=== PATIENT | female | born 1965 | race African-American/Black ===

== ENCOUNTER 2017-01-07 12:06 | Emergency (ER) | payer OTHER ==
[~2017-01-07] VITALS: Ht 162.6 cm; Wt 84.0 kg
[~2017-01-07 12:06] MED LIST: AMOX-424 PO; ATOR10TA PO; Acyclovir PO; DOXY100C42 PO; GABA800T PO; IBUP-1510 PO; INSASP SUBCUT; INSU3INS6 SUBCUT; LEVVL SUBCUT; TRAM50TA73 PO
[2017-01-07 14:21] LABS: CLARITY URINE CLEAR (CLEAR); COLOR URINE YELLOW (YELLOW); GLUCOSE URINE NEGATIVE (NEGATIVE); KETONES URINE NEGATIVE (NEGATIVE); LEUKOCYTE ESTERASE URINE NEGATIVE (NEGATIVE); NITRITE URINE NEGATIVE (NEGATIVE); OCCULT BLOOD URINE TRACE (NEGATIVE); PH URINE 6.5 (4.5-8.0); PROTEIN URINE 3+ (NEGATIVE); SPECIFIC GRAVITY URINE 1.014 (1.005-1.030); UROBILINOGEN URINE 0.2 E.U./dL (0.2-1.0)
[2017-01-07] MEDS ORDERED: KETOROLAC 30MG/ML VIAL IM ONE (14:45)
[2017-01-07 17:11] VITALS: BP 154/76
[2017-01-07 19:57] LABS: *AMPHETAMINES SCREEN URINE NEGATIVE (NEGATIVE); *BARBITURATES SCREEN URINE NEGATIVE (NEGATIVE); *BENZODIAZEPINES SCREEN URINE NEGATIVE (NEGATIVE); *COCAINE SCREEN URINE PRESUMTIVE POSITIVE (NEGATIVE); CANNABINOID URINE SCREEN NEGATIVE (NEGATIVE); METHADONE URINE SCREEN NEGATIVE (NEGATIVE); OPIATES URINE SCREEN NEGATIVE (NEGATIVE); PHENCYCLIDINE URINE SCREEN NEGATIVE (NEGATIVE)
== END 2017-01-07 17:12 | disposition home or self-care (01) ==
LOC: ER 12:56
DX: I50.9 Heart failure, unspecified (principal); R60.0 Localized edema; F14.10 Cocaine abuse, uncomplicated; E11.9 Type 2 diabetes mellitus without complications; Z79.4 Long term (current) use of insulin; Z98.890 Other specified postprocedural states; Z90.49 Acquired absence of other specified parts of digestive tract
CPT/HCPCS: 36415; 71010; 80048; 80305; 81001; 81025; 83880; 93970; 96372; 99285; J1885; J7030; Z7610

== ENCOUNTER 2018-04-21 18:12 | Inpatient (IN) | payer MEDICAID, OTHER ==
[~2018-04-21] VITALS: Ht 157.5 cm; Wt 77.1 kg
[~2018-04-21 18:12] MED LIST changes: -AMOX-424 PO; +ASCO500C6 MT; -Acyclovir PO; -DOXY100C42 PO; +FERR-71 MT; +GABA300C MT; -GABA800T PO; +HYDR-4133 MT; -IBUP-1510 PO; -INSASP SUBCUT; -INSU3INS6 SUBCUT; +LANTUSUD SUBCUT; -LEVVL SUBCUT; +NIFE30TA94 PO; -TRAM50TA73 PO
[2018-04-21] MEDS ORDERED: MORPHINE SULFATE 4 MG/ML CPJ (NOT FOR IM USE) IV ONE (19:00)
[2018-04-21] MEDS ORDERED: FUROSEMIDE 40MG/4ML VIAL IVP ONE (19:00)
[2018-04-21 19:17] LABS: BASOPHILS % 0.7 % (0.0-2.0); EOSINOPHILS % 6.6 % (0.0-5.0); HEMATOCRIT. 26.9 % (36.0-48.0); HEMOGLOBIN. 8.4 g/dL (12.0-16.0); LYMPHOCYTES % 16.7 % (20.0-50.0); MEAN CORPUSCULAR HEMOGLOBIN 25.8 pg (28.0-32.0); MEAN CORPUSCULAR VOLUME 82.5 fL (81.0-99.0); MEAN PLATELET VOLUME 8.9 fl (7.4-10.4); MONOCYTES % 6.4 % (2.0-8.0); NEUTROPHILS % 69.6 % (40.0-76.0); PLATELET 293 x1000/uL (130-400); RED BLOOD CELL COUNT 3.26 mill/uL (4.2-5.4); RED CELL DISTRIBUTION WIDTH 18.1 % (11.6-14.6)
[2018-04-21 19:22] LABS: CHLORIDE 119 mEq/L (98-107)
[2018-04-21] MEDS ORDERED: LABETALOL 5MG/ML SYR 20 MG/4 ML SYRINGE IV ONE (19:30)
[2018-04-21] MEDS ORDERED: LABETALOL HCL 100MG TABLET PO ONE (19:30)
[2018-04-21 19:42] LABS: INR 1.1; PROTHROMBIN TIME 10.9 sec (9.1-11.1)
[2018-04-21 21:11] LABS: CLARITY URINE CLEAR (CLEAR); COLOR URINE YELLOW (YELLOW); KETONES URINE NEGATIVE (NEGATIVE); LEUKOCYTE ESTERASE URINE NEGATIVE (NEGATIVE); NITRITE URINE NEGATIVE (NEGATIVE); OCCULT BLOOD URINE 1+ (NEGATIVE); PH URINE 6.5 (4.5-8.0); PROTEIN URINE 4+ (NEGATIVE); SPECIFIC GRAVITY URINE 1.015 (1.005-1.030); UROBILINOGEN URINE 0.2 E.U./dL (0.2-1.0)
[2018-04-22] VITALS (7 sets, daily range): BP systolic 125–163; BP diastolic 60–82
[2018-04-22] MEDS ORDERED: DEXTROSE 50% WATER 50ML SYRINGE IV PRN (02:00)
[2018-04-22] MEDS: MORPHINE SULFATE 4 MG/ML CPJ (NOT FOR IM USE) IV PRN ×4 (02:08→22:59)
[2018-04-22] MEDS ORDERED: SODIUM CHLORIDE 0.45% 1,000 ML IV SCH (03:00)
[2018-04-22] MEDS ORDERED: MEDICATION NOT ON FORMULARY EA (Hydralazine Hcl 1 TAB) MT SCH (04:00)
[2018-04-22 05:14] LABS: BASOPHILS % 0.9 % (0.0-2.0); HEMATOCRIT. 22.2 % (36.0-48.0); HEMOGLOBIN. 7.1 g/dL (12.0-16.0); LYMPHOCYTES % 26.7 % (20.0-50.0); MEAN CORPUSCULAR HEMOGLOBIN 26.4 pg (28.0-32.0); MEAN CORPUSCULAR VOLUME 82.8 fL (81.0-99.0); MEAN PLATELET VOLUME 9.2 fl (7.4-10.4); MONOCYTES % 9.5 % (2.0-8.0); NEUTROPHILS % 55.9 % (40.0-76.0); PLATELET 284 x1000/uL (130-400); RED BLOOD CELL COUNT 2.68 mill/uL (4.2-5.4)
[2018-04-22] MEDS: HYDRALAZINE HCL 10MG TABLET PO SCH ×3 (06:52→18:10)
[2018-04-22] MEDS: BLOOD SUGAR DIAGNOSTIC STRIP TEST SCH ×4 (06:53→20:32)
[2018-04-22] MEDS: INSULIN LISPRO 100 UNITS/ML SUBCUT SCH ×5 (08:10→20:33)
[2018-04-22] MEDS ORDERED: ASCORBIC ACID MT SCH (09:00)
[2018-04-22] MEDS: HEPARIN 5000 UNITS/ML VIAL SUBCUT SCH ×2 (09:00→20:41)
[2018-04-22] MEDS: ASCORBIC ACID 250 MG TABLET PO SCH (09:54)
[2018-04-22] MEDS: FERROUS SULFATE 325MG TABLET PO SCH ×3 (09:54→18:10)
[2018-04-22] MEDS ORDERED: INFLUENZA VIRUS VACCINE(AFLURIA) 0.5ML SYR IM ONE (10:00)
[2018-04-22] MEDS: FUROSEMIDE 40MG/4ML VIAL IVP SCH ×2 (13:01→16:29)
[2018-04-22] MEDS ORDERED: SODIUM POLYSTYRENE SULFONATE 15 G/60 ML BOT PO SCH (15:00)
[2018-04-22] MEDS: CITRIC ACID/SODIUM CITRATE SOLN 30ML UDC PO SCH ×2 (16:27→20:42)
[2018-04-22 16:52] LABS: BG BASE EXCESS -15.4 mmol/L (-2.0-2.0); BG CARBOXYHEMOGLOBIN 0.2 % (0.5-1.5); BG DEOXYHEMOGLOBIN 6.6 % (0.0-5.0); BG FRACTION INSPIRED OXYGEN 21; BG HCO3 ACT 12.8 mmol/L (22.0-26.0); BG METHEMOGLOBIN 0.4 % (0.0-1.5); BG OXYGEN SATURATION 93.4 % (92.0-98.5); BG OXYHEMOGLOBIN 92.8 % (94.0-97.0); BG PCO2 39.6 mmHg (35.0-45.0); BG PH 7.126 (7.350-7.450); BG PO2 79.1 mmHg (75.0-100.0); BG SAMPLE SITE LEFT BRACHIAL; BG TOTAL HEMOGLOBIN 8.5 g/dL (12.0-18.0); BG VENT MODE ROOM AIR
[2018-04-22 16:53] LABS: TOTAL IRON BINDING CAPACITY 216 ug/dL (250-450)
[2018-04-22] MEDS: ATORVASTATIN CALCIUM 10MG TABLET PO SCH (20:27)
[2018-04-22] MEDS: GABAPENTIN 300MG CAPSULE PO SCH (20:27)
[2018-04-22] MEDS: INSULIN GLARGINE UD 100 UNITS/ML SYR SUBCUT SCH (20:42)
[2018-04-22] MEDS ORDERED: EPOETIN ALFA 10000UNITS/ML VIAL SUBCUT SCH (21:00)
[2018-04-22] MEDS ORDERED: INSULIN GLARGINE UD 100 UNITS/ML SYR SUBCUT SCH (21:00)
[2018-04-22] MEDS ORDERED: MEDICATION NOT ON FORMULARY EA (Gabapentin (Neurontin) 1 CAP) MT SCH (21:00)
[2018-04-23] MEDS: HYDRALAZINE HCL 10MG TABLET PO SCH ×4 (00:53→18:00)
[2018-04-23 04:00] VITALS: BP 118/61
[2018-04-23] MEDS: MORPHINE SULFATE 4 MG/ML CPJ (NOT FOR IM USE) IV PRN ×4 (05:32→20:47)
[2018-04-23] MEDS: CITRIC ACID/SODIUM CITRATE SOLN 30ML UDC PO SCH ×3 (05:35→20:47)
[2018-04-23] MEDS: FUROSEMIDE 40MG/4ML VIAL IVP SCH ×2 (06:27→18:30)
[2018-04-23 07:48] LABS: BASOPHILS % 0.4 % (0.0-2.0); EOSINOPHILS % 5.5 % (0.0-5.0); HEMATOCRIT. 24.4 % (36.0-48.0); HEMOGLOBIN. 7.5 g/dL (12.0-16.0); LYMPHOCYTES % 12.9 % (20.0-50.0); MEAN CORPUSCULAR HEMOGLOBIN 25.8 pg (28.0-32.0); MEAN CORPUSCULAR VOLUME 83.6 fL (81.0-99.0); MEAN PLATELET VOLUME 9.3 fl (7.4-10.4); MONOCYTES % 7.7 % (2.0-8.0); NEUTROPHILS % 73.5 % (40.0-76.0); PLATELET 278 x1000/uL (130-400); RED BLOOD CELL COUNT 2.92 mill/uL (4.2-5.4)
[2018-04-23 08:00] VITALS: BP 139/72
[2018-04-23] MEDS: INSULIN LISPRO 100 UNITS/ML SUBCUT SCH ×4 (08:10→20:53)
[2018-04-23] MEDS: ASCORBIC ACID 250 MG TABLET PO SCH (08:12)
[2018-04-23] MEDS: FERROUS SULFATE 325MG TABLET PO SCH ×3 (08:12→18:30)
[2018-04-23] MEDS: HEPARIN 5000 UNITS/ML VIAL SUBCUT SCH ×2 (08:13→20:46)
[2018-04-23] MEDS: BLOOD SUGAR DIAGNOSTIC STRIP TEST SCH ×4 (08:15→20:47)
[2018-04-23] MEDS ORDERED: SODIUM POLYSTYRENE SULFONATE 15 G/60 ML BOT PO SCH (09:15)
[2018-04-23] MEDS ORDERED: LIDOCAINE HCL 1% 20ML VIAL (Pyxis) INJ ONE (09:46)
[2018-04-23] MEDS ORDERED: SODIUM BICARBONATE 8.4% 1 MEQ/ML 50ML SYR IV SCH (10:00)
[2018-04-23 11:54] VITALS: BP 127/68
[2018-04-23] MEDS: CALCIUM ACETATE 667MG CAPSULE PO SCH ×2 (13:31→18:30)
[2018-04-23 16:00] VITALS: BP 148/79
[2018-04-23 20:00] VITALS: BP 139/53
[2018-04-23] MEDS: ATORVASTATIN CALCIUM 10MG TABLET PO SCH (20:46)
[2018-04-23] MEDS: GABAPENTIN 300MG CAPSULE PO SCH (20:46)
[2018-04-23] MEDS: INSULIN GLARGINE UD 100 UNITS/ML SYR SUBCUT SCH (20:53)
[2018-04-24] VITALS (9 sets, daily range): BP systolic 125–160; BP diastolic 58–93
[2018-04-24] MEDS: MORPHINE SULFATE 4 MG/ML CPJ (NOT FOR IM USE) IV PRN ×3 (04:12→18:50)
[2018-04-24] MEDS: CITRIC ACID/SODIUM CITRATE SOLN 30ML UDC PO SCH ×3 (05:43→21:54)
[2018-04-24] MEDS: HYDRALAZINE HCL 10MG TABLET PO SCH ×5 (05:43→23:39)
[2018-04-24] MEDS: FUROSEMIDE 40MG/4ML VIAL IVP SCH ×2 (06:24→17:33)
[2018-04-24] MEDS: INSULIN LISPRO 100 UNITS/ML SUBCUT SCH ×4 (08:10→21:00)
[2018-04-24] MEDS: HEPARIN 5000 UNITS/ML VIAL SUBCUT SCH ×2 (08:33→21:54)
[2018-04-24] MEDS: ASCORBIC ACID 250 MG TABLET PO SCH (08:33)
[2018-04-24] MEDS: BLOOD SUGAR DIAGNOSTIC STRIP TEST SCH ×4 (08:33→21:00)
[2018-04-24] MEDS: CALCIUM ACETATE 667MG CAPSULE PO SCH ×3 (08:33→17:26)
[2018-04-24] MEDS: FERROUS SULFATE 325MG TABLET PO SCH ×3 (08:33→17:26)
[2018-04-24 11:20] LABS: HEMATOCRIT. 21.2 % (36.0-48.0); LYMPHOCYTES % 21.6 % (20.0-50.0); MEAN CORPUSCULAR HEMOGLOBIN 25.9 pg (28.0-32.0); MEAN PLATELET VOLUME 9.5 fl (7.4-10.4); MONOCYTES % 12.8 % (2.0-8.0); NEUTROPHILS % 59.6 % (40.0-76.0); PLATELET 215 x1000/uL (130-400); RED BLOOD CELL COUNT 2.59 mill/uL (4.2-5.4); RED CELL DISTRIBUTION WIDTH 17.4 % (11.6-14.6)
[2018-04-24 11:29] LABS: HEMOGLOBIN. 6.7 g/dL (12.0-16.0)
[2018-04-24 11:45] LABS: PHOSPHORUS 6.1 mg/dL (2.5-4.9)
[2018-04-24] MEDS ORDERED: ACETAMINOPHEN 325MG TABLET PO NR (15:30)
[2018-04-24] MEDS ORDERED: DIPHENHYDRAMINE 50MG CAPSULE PO NR (15:30)
[2018-04-24] MEDS: ATORVASTATIN CALCIUM 10MG TABLET PO SCH (21:53)
[2018-04-24] MEDS: GABAPENTIN 300MG CAPSULE PO SCH (21:53)
[2018-04-24] MEDS: INSULIN GLARGINE UD 100 UNITS/ML SYR SUBCUT SCH (21:56)
[2018-04-25 00:05] VITALS: BP 136/77
[2018-04-25] MEDS: MORPHINE SULFATE 4 MG/ML CPJ (NOT FOR IM USE) IV PRN ×5 (03:44→21:35)
[2018-04-25 04:00] VITALS: BP 152/78
[2018-04-25] MEDS: HYDRALAZINE HCL 10MG TABLET PO SCH ×3 (05:36→17:48)
[2018-04-25] MEDS: CITRIC ACID/SODIUM CITRATE SOLN 30ML UDC PO SCH ×2 (05:36→13:55)
[2018-04-25] MEDS: FUROSEMIDE 40MG/4ML VIAL IVP SCH ×2 (06:21→17:47)
[2018-04-25 06:23] LABS: BASOPHILS % 0.8 % (0.0-2.0); EOSINOPHILS % 6.1 % (0.0-5.0); HEMATOCRIT. 23.6 % (36.0-48.0); HEMOGLOBIN. 7.7 g/dL (12.0-16.0); LYMPHOCYTES % 22.5 % (20.0-50.0); MEAN CORPUSCULAR HEMOGLOBIN 26.5 pg (28.0-32.0); MEAN CORPUSCULAR VOLUME 81.3 fL (81.0-99.0); MEAN PLATELET VOLUME 9.3 fl (7.4-10.4); MONOCYTES % 13.9 % (2.0-8.0); NEUTROPHILS % 56.7 % (40.0-76.0); PLATELET 197 x1000/uL (130-400); RED BLOOD CELL COUNT 2.91 mill/uL (4.2-5.4); RED CELL DISTRIBUTION WIDTH 16.7 % (11.6-14.6)
[2018-04-25 07:33] LABS: PHOSPHORUS 4.6 mg/dL (2.5-4.9)
[2018-04-25] MEDS: BLOOD SUGAR DIAGNOSTIC STRIP TEST SCH ×4 (07:40→21:00)
[2018-04-25] MEDS: ASCORBIC ACID 250 MG TABLET PO SCH (08:03)
[2018-04-25] MEDS: CALCIUM ACETATE 667MG CAPSULE PO SCH ×3 (08:03→17:46)
[2018-04-25] MEDS: FERROUS SULFATE 325MG TABLET PO SCH ×3 (08:04→17:48)
[2018-04-25] MEDS: HEPARIN 5000 UNITS/ML VIAL SUBCUT SCH ×2 (08:04→21:37)
[2018-04-25] MEDS: INSULIN LISPRO 100 UNITS/ML SUBCUT SCH ×4 (08:05→21:00)
[2018-04-25 08:06] VITALS: BP 151/56
[2018-04-25 11:57] VITALS: BP 149/61
[2018-04-25 16:24] VITALS: BP 185/79
[2018-04-25 20:00] VITALS: BP 125/83
[2018-04-25] MEDS: GABAPENTIN 300MG CAPSULE PO SCH (21:36)
[2018-04-25] MEDS: ATORVASTATIN CALCIUM 10MG TABLET PO SCH (21:36)
[2018-04-25] MEDS: INSULIN GLARGINE UD 100 UNITS/ML SYR SUBCUT SCH (22:20)
[2018-04-26] VITALS: BP 175/78
[2018-04-26] MEDS: HYDRALAZINE HCL 10MG TABLET PO SCH ×4 (00:38→18:19)
[2018-04-26] MEDS: MORPHINE SULFATE 4 MG/ML CPJ (NOT FOR IM USE) IV PRN ×5 (03:23→21:03)
[2018-04-26 04:00] VITALS: BP 169/73
[2018-04-26] MEDS: FUROSEMIDE 40MG/4ML VIAL IVP SCH ×2 (06:17→17:15)
[2018-04-26 06:35] LABS: BASOPHILS % 0.6 % (0.0-2.0); EOSINOPHILS % 6.1 % (0.0-5.0); HEMOGLOBIN. 8.6 g/dL (12.0-16.0); LYMPHOCYTES % 20.4 % (20.0-50.0); MEAN CORPUSCULAR HEMOGLOBIN 26.1 pg (28.0-32.0); MEAN CORPUSCULAR VOLUME 82.3 fL (81.0-99.0); MEAN PLATELET VOLUME 9.7 fl (7.4-10.4); MONOCYTES % 13.4 % (2.0-8.0); NEUTROPHILS % 59.5 % (40.0-76.0); PLATELET 252 x1000/uL (130-400); RED BLOOD CELL COUNT 3.28 mill/uL (4.2-5.4); RED CELL DISTRIBUTION WIDTH 16.7 % (11.6-14.6)
[2018-04-26 06:48] LABS: HEPATITIS B SURFACE AB < 3.1 mIU/mL
[2018-04-26 06:58] LABS: HEPATITIS B SURFACE ANTIGEN NEGATIVE
[2018-04-26] MEDS: INSULIN LISPRO 100 UNITS/ML SUBCUT SCH ×4 (07:15→21:00)
[2018-04-26] MEDS: BLOOD SUGAR DIAGNOSTIC STRIP TEST SCH ×4 (07:15→21:00)
[2018-04-26 07:25] LABS: PHOSPHORUS 4.6 mg/dL (2.5-4.9)
[2018-04-26 07:26] LABS: HEPATITIS B CORE AB IGM NEGATIVE
[2018-04-26 07:52] VITALS: BP 155/64
[2018-04-26] MEDS: CALCIUM ACETATE 667MG CAPSULE PO SCH ×3 (08:00→18:18)
[2018-04-26] MEDS: ASCORBIC ACID 250 MG TABLET PO SCH (08:00)
[2018-04-26] MEDS: FERROUS SULFATE 325MG TABLET PO SCH ×3 (08:00→18:18)
[2018-04-26] MEDS ORDERED: VANCOMYCIN 1 G PREMIX 200 ML IV ONE (09:45)
[2018-04-26] MEDS: HEPARIN 5000 UNITS/ML VIAL SUBCUT SCH ×2 (10:08→21:00)
[2018-04-26] MEDS: CEFTRIAXONE 1 G PREMIX 50 ML IV SCH ×2 (11:00→13:34)
[2018-04-26] MEDS ORDERED: VANCOMYCIN 1500MG in DEXTROSE 5% WATER 250ML IV NR (12:00)
[2018-04-26 12:06] VITALS: BP 163/66
[2018-04-26 15:50] VITALS: BP 168/70
[2018-04-26] MEDS: HYDROCODONE/ACETAMINOPHEN 5/325MG TABLET PO PRN ×2 (15:54→23:43)
[2018-04-26] MEDS: EPOETIN ALFA 10000UNITS/ML VIAL SUBCUT SCH (21:00)
[2018-04-26] MEDS: ATORVASTATIN CALCIUM 10MG TABLET PO SCH (21:03)
[2018-04-26] MEDS: GABAPENTIN 300MG CAPSULE PO SCH (21:03)
[2018-04-26] MEDS: INSULIN GLARGINE UD 100 UNITS/ML SYR SUBCUT SCH (22:00)
[2018-04-27] VITALS (15 sets, daily range): BP systolic 116–177; BP diastolic 68–97
[2018-04-27] MEDS: HYDRALAZINE HCL 10MG TABLET PO SCH
[2018-04-27] MEDS: MORPHINE SULFATE 4 MG/ML CPJ (NOT FOR IM USE) IV PRN ×4 (01:48→22:02)
[2018-04-27] MEDS: BLOOD SUGAR DIAGNOSTIC STRIP TEST SCH ×4 (07:40→22:27)
[2018-04-27 07:54] LABS: HEMATOCRIT. 26.2 % (36.0-48.0); HEMOGLOBIN. 8.3 g/dL (12.0-16.0); MEAN CORPUSCULAR HEMOGLOBIN 26.2 pg (28.0-32.0); MEAN CORPUSCULAR VOLUME 82.7 fL (81.0-99.0); MEAN PLATELET VOLUME 9.5 fl (7.4-10.4); PLATELET 255 x1000/uL (130-400); RED BLOOD CELL COUNT 3.17 mill/uL (4.2-5.4); RED CELL DISTRIBUTION WIDTH 16.7 % (11.6-14.6)
[2018-04-27] MEDS: INSULIN LISPRO 100 UNITS/ML SUBCUT SCH ×4 (08:10→21:00)
[2018-04-27 08:24] LABS: PHOSPHORUS 4.2 mg/dL (2.5-4.9)
[2018-04-27] MEDS: HEPARIN 5000 UNITS/ML VIAL SUBCUT SCH ×2 (09:00→22:26)
[2018-04-27] MEDS: FUROSEMIDE 40MG/4ML VIAL IVP SCH (09:21)
[2018-04-27] MEDS: CALCIUM ACETATE 667MG CAPSULE PO SCH ×3 (09:21→18:47)
[2018-04-27] MEDS: FERROUS SULFATE 325MG TABLET PO SCH ×3 (09:21→18:47)
[2018-04-27] MEDS: ASCORBIC ACID 250 MG TABLET PO SCH (09:27)
[2018-04-27] MEDS ORDERED: SODIUM BICARBONATE 4% (2.4MEQ) 5ML VIAL IV ONE (09:33)
[2018-04-27] MEDS ORDERED: LIDOCAINE HCL 1% 20ML VIAL (Pyxis) INJ ONE (09:33)
[2018-04-27] MEDS ORDERED: MIDAZOLAM HCL 5 MG/5 ML VIAL IV ONE (09:45)
[2018-04-27] MEDS ORDERED: FENTANYL CITRATE/PF 50MCG/ML 2ML VIAL IV ONE (09:45)
[2018-04-27] MEDS ORDERED: FENTANYL CITRATE/PF 50MCG/ML 2ML VIAL ONE (10:03)
[2018-04-27] MEDS ORDERED: MIDAZOLAM HCL 2 MG/2 ML VIAL ONE (10:06)
[2018-04-27] MEDS ORDERED: MAGNESIUM SULFATE 2 GM in DEXTROSE 5% WATER 50 ML IV SCH (10:30)
[2018-04-27] MEDS ORDERED: MIDAZOLAM HCL 2 MG/2 ML VIAL IV ONE (10:30)
[2018-04-27 13:16] LABS: PLATELET ESTIMATE NORMAL
[2018-04-27] MEDS: CEFTRIAXONE 1 G PREMIX 50 ML IV SCH (13:21)
[2018-04-27] MEDS: HYDROCODONE/ACETAMINOPHEN 5/325MG TABLET PO PRN (13:37)
[2018-04-27] MEDS ORDERED: VANCOMYCIN 1 G PREMIX 200 ML IV SCH (17:00)
[2018-04-27] MEDS: NIFEDIPINE XL 30MG TAB PO SCH (18:47)
[2018-04-27] MEDS: INSULIN GLARGINE UD 100 UNITS/ML SYR SUBCUT SCH (22:00)
[2018-04-27] MEDS: FUROSEMIDE 40MG TABLET PO SCH (22:26)
[2018-04-27] MEDS: ATORVASTATIN CALCIUM 10MG TABLET PO SCH (22:26)
[2018-04-28] VITALS: BP 152/68
[2018-04-28] MEDS: HYDRALAZINE HCL 10MG TABLET PO SCH ×2 (00:23→05:41)
[2018-04-28 04:00] VITALS: BP 152/65
[2018-04-28] MEDS: MORPHINE SULFATE 4 MG/ML CPJ (NOT FOR IM USE) IV PRN ×4 (04:11→21:18)
[2018-04-28] MEDS: HYDROCODONE/ACETAMINOPHEN 5/325MG TABLET PO PRN ×2 (05:58→22:47)
[2018-04-28 06:58] LABS: HEMATOCRIT. 25.3 % (36.0-48.0); MEAN CORPUSCULAR HEMOGLOBIN 26.2 pg (28.0-32.0); MEAN CORPUSCULAR VOLUME 82.5 fL (81.0-99.0); MEAN PLATELET VOLUME 9.3 fl (7.4-10.4); PLATELET 262 x1000/uL (130-400); RED BLOOD CELL COUNT 3.06 mill/uL (4.2-5.4); RED CELL DISTRIBUTION WIDTH 16.4 % (11.6-14.6)
[2018-04-28] MEDS: BLOOD SUGAR DIAGNOSTIC STRIP TEST SCH ×4 (07:03→21:15)
[2018-04-28 07:31] LABS: PHOSPHORUS 4.1 mg/dL (2.5-4.9)
[2018-04-28] MEDS: FERROUS SULFATE 325MG TABLET PO SCH ×3 (08:10→18:35)
[2018-04-28] MEDS: INSULIN LISPRO 100 UNITS/ML SUBCUT SCH ×4 (08:10→21:00)
[2018-04-28] MEDS: CALCIUM ACETATE 667MG CAPSULE PO SCH ×3 (09:48→18:35)
[2018-04-28] MEDS: GABAPENTIN 300MG CAPSULE PO SCH ×3 (09:49→18:35)
[2018-04-28] MEDS: ASCORBIC ACID 250 MG TABLET PO SCH (09:49)
[2018-04-28] MEDS: FUROSEMIDE 40MG TABLET PO SCH ×2 (09:49→20:35)
[2018-04-28] MEDS: HEPARIN 5000 UNITS/ML VIAL SUBCUT SCH ×2 (09:57→20:36)
[2018-04-28] MEDS: NIFEDIPINE XL 30MG TAB PO SCH (09:59)
[2018-04-28 12:00] VITALS: BP 129/54
[2018-04-28] MEDS: CEFTRIAXONE 1 G PREMIX 50 ML IV SCH (13:27)
[2018-04-28] MEDS ORDERED: VANCOMYCIN 1 G PREMIX 200 ML IV SCH (14:00)
[2018-04-28 14:17] LABS: PLATELET ESTIMATE NORMAL
[2018-04-28 16:00] VITALS: BP 120/72
[2018-04-28 20:00] VITALS: BP 140/62
[2018-04-28] MEDS: ATORVASTATIN CALCIUM 10MG TABLET PO SCH (20:36)
[2018-04-28] MEDS: EPOETIN ALFA 10000UNITS/ML VIAL SUBCUT SCH (21:17)
[2018-04-28] MEDS: INSULIN GLARGINE UD 100 UNITS/ML SYR SUBCUT SCH (21:38)
[2018-04-28 22:00] VITALS: BP 146/60
[2018-04-29] VITALS (9 sets, daily range): BP systolic 102–156; BP diastolic 46–74
[2018-04-29] MEDS: MORPHINE SULFATE 4 MG/ML CPJ (NOT FOR IM USE) IV PRN ×4 (02:45→21:48)
[2018-04-29] MEDS: HYDRALAZINE HCL 10MG TABLET PO SCH ×5 (06:00→23:46)
[2018-04-29] MEDS: BLOOD SUGAR DIAGNOSTIC STRIP TEST SCH ×4 (06:24→20:14)
[2018-04-29] MEDS: INSULIN LISPRO 100 UNITS/ML SUBCUT SCH ×4 (07:50→20:14)
[2018-04-29 08:12] LABS: HEMATOCRIT. 24.9 % (36.0-48.0); MEAN CORPUSCULAR HEMOGLOBIN 26.4 pg (28.0-32.0); MEAN CORPUSCULAR VOLUME 82.5 fL (81.0-99.0); MEAN PLATELET VOLUME 9.5 fl (7.4-10.4); PLATELET 284 x1000/uL (130-400); RED BLOOD CELL COUNT 3.02 mill/uL (4.2-5.4); RED CELL DISTRIBUTION WIDTH 16.1 % (11.6-14.6)
[2018-04-29] MEDS: GABAPENTIN 300MG CAPSULE PO SCH ×3 (09:05→17:37)
[2018-04-29] MEDS: CALCIUM ACETATE 667MG CAPSULE PO SCH ×3 (09:05→17:37)
[2018-04-29] MEDS: ASCORBIC ACID 250 MG TABLET PO SCH (09:05)
[2018-04-29] MEDS: FERROUS SULFATE 325MG TABLET PO SCH ×3 (09:05→17:37)
[2018-04-29] MEDS: NIFEDIPINE XL 30MG TAB PO SCH (09:06)
[2018-04-29] MEDS: FUROSEMIDE 40MG TABLET PO SCH ×2 (09:06→20:13)
[2018-04-29] MEDS: HEPARIN 5000 UNITS/ML VIAL SUBCUT SCH ×2 (09:07→20:14)
[2018-04-29 10:16] LABS: PHOSPHORUS 4.4 mg/dL (2.5-4.9)
[2018-04-29] MEDS: CEFTRIAXONE 1 G PREMIX 50 ML IV SCH (12:15)
[2018-04-29 13:49] LABS: PLATELET ESTIMATE NORMAL
[2018-04-29] MEDS ORDERED: HEPARIN SODIUM 1,000 UNIT/1ML VIAL IV SCH (14:00)
[2018-04-29] MEDS: ATORVASTATIN CALCIUM 10MG TABLET PO SCH (20:13)
[2018-04-29] MEDS: INSULIN GLARGINE UD 100 UNITS/ML SYR SUBCUT SCH (21:49)
[2018-04-30] VITALS (7 sets, daily range): BP systolic 125–143; BP diastolic 56–78
[2018-04-30] MEDS: MORPHINE SULFATE 4 MG/ML CPJ (NOT FOR IM USE) IV PRN ×2 (03:59→09:24)
[2018-04-30] MEDS: HYDRALAZINE HCL 10MG TABLET PO SCH ×3 (06:00→17:16)
[2018-04-30] MEDS: BLOOD SUGAR DIAGNOSTIC STRIP TEST SCH ×3 (07:40→17:16)
[2018-04-30 07:59] LABS: HEMATOCRIT. 25.6 % (36.0-48.0); HEMOGLOBIN. 8.1 g/dL (12.0-16.0); MEAN CORPUSCULAR HEMOGLOBIN 25.9 pg (28.0-32.0); MEAN CORPUSCULAR VOLUME 81.6 fL (81.0-99.0); PLATELET 290 x1000/uL (130-400); RED BLOOD CELL COUNT 3.14 mill/uL (4.2-5.4); RED CELL DISTRIBUTION WIDTH 15.7 % (11.6-14.6)
[2018-04-30] MEDS: INSULIN LISPRO 100 UNITS/ML SUBCUT SCH ×3 (08:10→17:17)
[2018-04-30 08:25] LABS: PHOSPHORUS 3.5 mg/dL (2.5-4.9)
[2018-04-30] MEDS: CALCIUM ACETATE 667MG CAPSULE PO SCH ×3 (08:36→17:16)
[2018-04-30] MEDS: FUROSEMIDE 40MG TABLET PO SCH (08:36)
[2018-04-30] MEDS: NIFEDIPINE XL 30MG TAB PO SCH (08:37)
[2018-04-30] MEDS: FERROUS SULFATE 325MG TABLET PO SCH ×3 (08:37→17:16)
[2018-04-30] MEDS: GABAPENTIN 300MG CAPSULE PO SCH ×3 (08:37→17:16)
[2018-04-30] MEDS: ASCORBIC ACID 250 MG TABLET PO SCH (08:37)
[2018-04-30] MEDS: HEPARIN 5000 UNITS/ML VIAL SUBCUT SCH (09:25)
[2018-04-30] MEDS: CEFTRIAXONE 1 G PREMIX 50 ML IV SCH (11:41)
[2018-04-30 13:52] LABS: PLATELET ESTIMATE NORMAL
[2018-04-30] MEDS: HEPARIN SODIUM 1,000 UNIT/1ML VIAL IV NR (16:46)
[2018-04-30] MEDS: HYDROCODONE/ACETAMINOPHEN 5/325MG TABLET PO PRN (18:31)
== END 2018-04-30 21:30 | DRG 383 ==
LOC: ER 18:12 → 7WST 20:36 → EDBEDREQTM 20:40 → EDBEDREQ 20:40 → ENRESERV 21:42
PROVIDERS: ADMIT Internal Medicine; ATTEND Internal Medicine
PROC: 02HV33Z Insertion of Infusion Device into Superior Vena Cava, Percutaneous Approach (ICD-10-PCS; 2018-04-23)
PROC: B5181ZA Fluoroscopy of Superior Vena Cava using Low Osmolar Contrast, Guidance (ICD-10-PCS; 2018-04-23)
PROC: B548ZZA Ultrasonography of Superior Vena Cava, Guidance (ICD-10-PCS; 2018-04-23)
PROC: 5A1D70Z Performance of Urinary Filtration, Intermittent, Less than 6 Hours Per Day (ICD-10-PCS; 2018-04-23)
PROC: 30233N1 Transfusion of Nonautologous Red Blood Cells into Peripheral Vein, Percutaneous Approach (ICD-10-PCS; principal; 2018-04-24)
PROC: 5A1D70Z Performance of Urinary Filtration, Intermittent, Less than 6 Hours Per Day (ICD-10-PCS; 2018-04-25)
PROC: 02PYX3Z Removal of Infusion Device from Great Vessel, External Approach (ICD-10-PCS; 2018-04-27)
PROC: 02HV33Z Insertion of Infusion Device into Superior Vena Cava, Percutaneous Approach (ICD-10-PCS; 2018-04-27)
PROC: 0JH63XZ Insertion of Tunneled Vascular Access Device into Chest Subcutaneous Tissue and Fascia, Percutaneous Approach (ICD-10-PCS; 2018-04-27)
PROC: B5181ZA Fluoroscopy of Superior Vena Cava using Low Osmolar Contrast, Guidance (ICD-10-PCS; 2018-04-27)
PROC: 5A1D70Z Performance of Urinary Filtration, Intermittent, Less than 6 Hours Per Day (ICD-10-PCS; 2018-04-27)
PROC: 5A1D70Z Performance of Urinary Filtration, Intermittent, Less than 6 Hours Per Day (ICD-10-PCS; 2018-04-29)
PROC: 5A1D70Z Performance of Urinary Filtration, Intermittent, Less than 6 Hours Per Day (ICD-10-PCS; 2018-04-30)
DX: L03.116 Cellulitis of left lower limb (principal); N17.0 Acute kidney failure with tubular necrosis; E43 Unspecified severe protein-calorie malnutrition; I16.0 Hypertensive urgency; H49.00 Third [oculomotor] nerve palsy, unspecified eye; E11.22 Type 2 diabetes mellitus with diabetic chronic kidney disease; E87.2 Acidosis; E87.70 Fluid overload, unspecified; E11.319 Type 2 diabetes mellitus with unspecified diabetic retinopathy without macular edema; Z98.891 History of uterine scar from previous surgery; N18.6 End stage renal disease; E11.41 Type 2 diabetes mellitus with diabetic mononeuropathy; E87.0 Hyperosmolality and hypernatremia; E87.5 Hyperkalemia; Z68.31 Body mass index [BMI] 31.0-31.9, adult; Z28.21 Immunization not carried out because of patient refusal; I12.0 Hypertensive chronic kidney disease with stage 5 chronic kidney disease or end stage renal disease; D63.1 Anemia in chronic kidney disease; E11.65 Type 2 diabetes mellitus with hyperglycemia; E78.5 Hyperlipidemia, unspecified; F17.210 Nicotine dependence, cigarettes, uncomplicated; N25.81 Secondary hyperparathyroidism of renal origin; Z82.49 Family history of ischemic heart disease and other diseases of the circulatory system; Z83.3 Family history of diabetes mellitus; Z91.15 Patient's noncompliance with renal dialysis
CPT/HCPCS: 36415; 36558; 36569; 36589; 36600; 71045; 72192; 73502; 73700; 76700; 76770; 76937; 77001; 80048; 80202; 82375; 82550; 82805; 82962; 83540; 83550; 83735; 84100; 86705; 86706; 86803; 86850; 86900; 86920; 87340; 93970; 96374; 96375; 97116; 97162; 99291; C1750; C1752; C1769; J0696; J0885; J1642; J1644; J1815; J1940; J2250; J2270; J3010; J3370; J3475; J3490; J7030; J7050; J7060; P9016; Q0163

== ENCOUNTER 2018-07-30 23:47 | Inpatient (IN) | payer MEDICAID, OTHER ==
[~2018-07-30] VITALS: Ht 160 cm; Wt 70.3 kg
[2018-07-31] MEDS ORDERED: ASPIRIN 81MG TABLET PO ONE (02:30)
[2018-07-31] MEDS ORDERED: NITROGLYCERIN 0.4MG TABLET SL SL PRN (02:30)
[2018-07-31] MEDS ORDERED: INSULIN REGULAR (HUMULIN R) UD 100 UNITS/ML SYR SUBCUT ONE (03:00)
[2018-07-31] MEDS ORDERED: INSULIN REGULAR (HUMULIN R) 300UNITS/3ML SUBCUT NR (03:15)
[2018-07-31 03:20] LABS: BASOPHILS % 1.1 % (0.0-2.0); EOSINOPHILS % 5.1 % (0.0-5.0); HEMATOCRIT. 38.9 % (36.0-48.0); MEAN CORPUSCULAR HEMOGLOBIN 25.2 pg (28.0-32.0); MEAN CORPUSCULAR VOLUME 81.9 fL (81.0-99.0); MEAN PLATELET VOLUME 10.8 fl (7.4-10.4); MONOCYTES % 7.9 % (2.0-8.0); NEUTROPHILS % 58.9 % (40.0-76.0); PLATELET 182 x1000/uL (130-400); RED BLOOD CELL COUNT 4.75 mill/uL (4.2-5.4); RED CELL DISTRIBUTION WIDTH 17.8 % (11.6-14.6)
[2018-07-31 03:23] LABS: CHLORIDE 95 mEq/L (98-107)
[2018-07-31] MEDS ORDERED: ONDANSETRON HCL 4MG/2ML INJ IV STA (03:26)
[2018-07-31] MEDS ORDERED: MORPHINE SULFATE 4 MG/ML CPJ (NOT FOR IM USE) IV STA (03:26)
[2018-07-31 03:28] LABS: D-DIMER 0.92 mg/L FEU (<0.50); PROTHROMBIN TIME 10.5 sec (9.1-11.1)
[2018-07-31 03:30] LABS: BETA HYDROXYBUTYRATE 0.2 mMol/L (0.0-0.3)
[2018-07-31] MEDS ORDERED: IOHEXOL-350 100 ML BOTTLE ONE (04:33)
[2018-07-31] MEDS ORDERED: IPRATROPIUM/ALBUTEROL 0.5-3(2.5)MG/3ML NEB INH PRN (07:15)
[2018-07-31] MEDS ORDERED: DOCUSATE SODIUM 100MG CAPSULE PO PRN (07:15)
[2018-07-31] MEDS ORDERED: ONDANSETRON HCL 4MG/2ML INJ IV PRN (07:15)
[2018-07-31] MEDS ORDERED: ACETAMINOPHEN 325MG TABLET PO PRN (07:15)
[2018-07-31] MEDS ORDERED: LORAZEPAM 0.5MG TABLET PO PRN (07:15)
[2018-07-31] MEDS ORDERED: CLONIDINE 0.1MG TABLET PO PRN (07:15)
[2018-07-31] MEDS ORDERED: DIPHENHYDRAMINE 50MG/ML VIAL IV SCH (07:30)
[2018-07-31 09:52] LABS: PHOSPHORUS 3.5 mg/dL (2.5-4.9)
[2018-07-31 09:53] LABS: HCG SCREEN INDETERMINATE
[2018-07-31 09:57] LABS: CREATINE KINASE MB FRACTION 1.6 ng/mL (0.5-3.6)
[2018-07-31] MEDS: NICOTINE 14MG PATCH TD SCH (10:43)
[2018-07-31 12:00] VITALS: BP 189/96
[2018-07-31] MEDS ORDERED: CALC667T2 MT (12:03)
[2018-07-31] MEDS ORDERED: CLON0.1T14 MT (12:07)
[2018-07-31] MEDS ORDERED: INSU100I11 SQ (12:07)
[2018-07-31] MEDS ORDERED: GABA-290 MT (12:07)
[2018-07-31] MEDS ORDERED: GABA800T97 MT (12:07)
[2018-07-31] MEDS ORDERED: ACET-2708 MT (12:07)
[2018-07-31] MEDS ORDERED: DEXTROSE 50% WATER 50ML SYRINGE IV PRN ×2 (12:30)
[2018-07-31] MEDS: HYDROCODONE/ACETAMINOPHEN 5/325MG TABLET PO PRN ×2 (14:06→21:38)
[2018-07-31] MEDS ORDERED: INSULIN GLARGINE UD 100 UNITS/ML SYR SUBCUT SCH ×2 (14:30→22:00)
[2018-07-31] MEDS: INSULIN LISPRO 100 UNITS/ML SUBCUT SCH ×3 (14:49→21:37)
[2018-07-31 16:00] VITALS: BP 124/66
[2018-07-31] MEDS: DILTIAZEM HCL 30MG TABLET PO SCH ×2 (16:15→21:36)
[2018-07-31] MEDS: BLOOD SUGAR DIAGNOSTIC STRIP TEST SCH ×2 (17:44→20:06)
[2018-07-31 18:41] VITALS: BP 145/64
[2018-07-31 20:00] VITALS: BP 136/62
[2018-07-31] MEDS: ATORVASTATIN CALCIUM 10MG TABLET PO SCH (21:36)
[2018-07-31] MEDS: INSULIN GLARGINE UD 100 UNITS/ML SYR SUBCUT SCH (21:37)
[2018-08-01] VITALS: BP 142/65
[2018-08-01] MEDS: HYDROCODONE/ACETAMINOPHEN 5/325MG TABLET PO PRN ×3 (03:17→20:15)
[2018-08-01 03:57] VITALS: BP 151/80
[2018-08-01] MEDS: BLOOD SUGAR DIAGNOSTIC STRIP TEST SCH ×4 (05:24→20:19)
[2018-08-01] MEDS: DILTIAZEM HCL 30MG TABLET PO SCH ×3 (05:44→22:44)
[2018-08-01] MEDS: INSULIN LISPRO 100 UNITS/ML SUBCUT SCH ×4 (05:46→21:00)
[2018-08-01 06:58] LABS: BASOPHILS % 0.6 % (0.0-2.0); HEMATOCRIT. 38.9 % (36.0-48.0); LYMPHOCYTES % 33.9 % (20.0-50.0); MEAN CORPUSCULAR HEMOGLOBIN 25.2 pg (28.0-32.0); MEAN CORPUSCULAR VOLUME 81.7 fL (81.0-99.0); MEAN PLATELET VOLUME 10.7 fl (7.4-10.4); MONOCYTES % 10.8 % (2.0-8.0); NEUTROPHILS % 48.7 % (40.0-76.0); PLATELET 204 x1000/uL (130-400); RED BLOOD CELL COUNT 4.76 mill/uL (4.2-5.4); RED CELL DISTRIBUTION WIDTH 17.8 % (11.6-14.6)
[2018-08-01 08:00] VITALS: BP 116/64
[2018-08-01] MEDS ORDERED: REGADENOSON 0.4 MG/5 ML IV ONE ×2 (09:33→11:30)
[2018-08-01] MEDS: INSULIN GLARGINE UD 100 UNITS/ML SYR SUBCUT SCH ×2 (10:53→21:42)
[2018-08-01] MEDS: NICOTINE 14MG PATCH TD SCH (10:56)
[2018-08-01 12:00] VITALS: BP 116/64
[2018-08-01 16:00] VITALS: BP 143/73
[2018-08-01 20:00] VITALS: BP 143/68
[2018-08-01] MEDS: ATORVASTATIN CALCIUM 10MG TABLET PO SCH (20:14)
[2018-08-02] VITALS (7 sets, daily range): BP systolic 106–156; BP diastolic 62–96
[2018-08-02] MEDS: HYDROCODONE/ACETAMINOPHEN 5/325MG TABLET PO PRN ×3 (01:11→14:57)
[2018-08-02] MEDS: BLOOD SUGAR DIAGNOSTIC STRIP TEST SCH ×3 (06:20→17:29)
[2018-08-02] MEDS: DILTIAZEM HCL 30MG TABLET PO SCH ×2 (06:26→13:32)
[2018-08-02] MEDS: INSULIN LISPRO 100 UNITS/ML SUBCUT SCH ×4 (06:27→20:44)
[2018-08-02 07:43] LABS: BASOPHILS % 0.8 % (0.0-2.0); EOSINOPHILS % 6.1 % (0.0-5.0); HEMATOCRIT. 37.2 % (36.0-48.0); HEMOGLOBIN. 11.5 g/dL (12.0-16.0); LYMPHOCYTES % 30.6 % (20.0-50.0); MEAN CORPUSCULAR HEMOGLOBIN 25.3 pg (28.0-32.0); MEAN CORPUSCULAR VOLUME 81.8 fL (81.0-99.0); MEAN PLATELET VOLUME 10.5 fl (7.4-10.4); MONOCYTES % 12.1 % (2.0-8.0); NEUTROPHILS % 50.4 % (40.0-76.0); PLATELET 214 x1000/uL (130-400); RED BLOOD CELL COUNT 4.55 mill/uL (4.2-5.4)
[2018-08-02] MEDS: NICOTINE 14MG PATCH TD SCH (09:58)
[2018-08-02] MEDS: INSULIN GLARGINE UD 100 UNITS/ML SYR SUBCUT SCH (10:01)
[2018-08-02] MEDS: ATORVASTATIN CALCIUM 10MG TABLET PO SCH (20:43)
== END 2018-08-02 21:10 | disposition home or self-care (01) | DRG 199 ==
LOC: ER 23:47 → 8WST 07-31 05:01 → ENRESERV 07-31 08:10
PROVIDERS: ADMIT Internal Medicine; ATTEND Internal Medicine
PROC: 5A1D70Z Performance of Urinary Filtration, Intermittent, Less than 6 Hours Per Day (ICD-10-PCS; principal; 2018-07-31)
PROC: 5A1D70Z Performance of Urinary Filtration, Intermittent, Less than 6 Hours Per Day (ICD-10-PCS; 2018-08-02)
DX: I16.1 Hypertensive emergency (principal); E43 Unspecified severe protein-calorie malnutrition; I50.21 Acute systolic (congestive) heart failure; E11.22 Type 2 diabetes mellitus with diabetic chronic kidney disease; N18.6 End stage renal disease; I24.9 Acute ischemic heart disease, unspecified; M94.0 Chondrocostal junction syndrome [Tietze]; I13.2 Hypertensive heart and chronic kidney disease with heart failure and with stage 5 chronic kidney disease, or end stage renal disease; I27.20 Pulmonary hypertension, unspecified; E11.319 Type 2 diabetes mellitus with unspecified diabetic retinopathy without macular edema; I31.3 Pericardial effusion (noninflammatory); I42.0 Dilated cardiomyopathy; E11.65 Type 2 diabetes mellitus with hyperglycemia; E78.5 Hyperlipidemia, unspecified; Z99.2 Dependence on renal dialysis; D63.8 Anemia in other chronic diseases classified elsewhere; F17.200 Nicotine dependence, unspecified, uncomplicated; I50.9 Heart failure, unspecified; Z79.4 Long term (current) use of insulin; Z68.27 Body mass index [BMI] 27.0-27.9, adult
CPT/HCPCS: 36415; 71045; 71275; 78452; 80048; 80061; 82010; 82550; 82553; 82962; 83036; 83735; 83880; 84100; 84443; 84484; 84703; 85379; 93005; 93017; 93306; 93970; 99285; A9500; J1815; J2270; J2405; J2785; Q9967

== ENCOUNTER 2018-10-28 18:23 | Inpatient (IN) | payer MEDICAID, OTHER ==
[~2018-10-28] VITALS: Ht 160 cm; Wt 76.7 kg
[~2018-10-28 18:23] MED LIST changes: +ACET-2708 MT; +CALC667T2 MT; +CLON0.1T14 MT; +GABA800T97 MT; +INSU100I11 SQ
[2018-10-28] MEDS ORDERED: MORPHINE SULFATE 4 MG/ML CPJ (NOT FOR IM USE) IV STA (23:50)
[2018-10-28] MEDS ORDERED: SODIUM CHLORIDE 0.9% 1,000 ML IV ONE (23:50)
[2018-10-28] MEDS ORDERED: ONDANSETRON HCL 4MG/2ML INJ IV STA (23:50)
[2018-10-28] MEDS ORDERED: KETOROLAC 30MG/ML VIAL IV STA (23:50)
[2018-10-29] MEDS ORDERED: METRONIDAZOLE 500 MG PREMIX 100 ML IV ONE
[2018-10-29] MEDS ORDERED: PIPERACILLIN/TAZ 3.375G PREMIX 50 ML IV ONE
[2018-10-29 00:17] LABS: BASOPHILS % 0.8 % (0.0-2.0); EOSINOPHILS % 4.4 % (0.0-5.0); HEMATOCRIT. 35.3 % (36.0-48.0); HEMOGLOBIN. 11.1 g/dL (12.0-16.0); LYMPHOCYTES % 17.7 % (20.0-50.0); MEAN CORPUSCULAR HEMOGLOBIN 27.9 pg (28.0-32.0); MEAN CORPUSCULAR VOLUME 88.2 fL (81.0-99.0); MEAN PLATELET VOLUME 9.9 fl (7.4-10.4); MONOCYTES % 7.2 % (2.0-8.0); NEUTROPHILS % 69.9 % (40.0-76.0); PLATELET 259 x1000/uL (130-400); RED CELL DISTRIBUTION WIDTH 18.7 % (11.6-14.6)
[2018-10-29 00:21] LABS: CHLORIDE 101 mEq/L (98-107)
[2018-10-29] MEDS ORDERED: NICOTINE 21MG PATCH TD ONE (00:45)
[2018-10-29 01:03] LABS: PROTHROMBIN TIME 10.7 sec (9.6-11.0)
[2018-10-29] MEDS ORDERED: INSULIN REGULAR (HUMULIN R) 300UNITS/3ML SUBCUT ONE (06:26)
[2018-10-29 07:05] VITALS: BP 166/71
[2018-10-29 08:00] VITALS: BP_SYST 131; BP_DIAS 101; BP_DIAS 104
[2018-10-29] MEDS: BLOOD SUGAR DIAGNOSTIC STRIP TEST SCH ×4 (08:00→21:11)
[2018-10-29] MEDS ORDERED: CLONIDINE 0.1MG TABLET PO PRN (08:00)
[2018-10-29] MEDS ORDERED: ONDANSETRON HCL 4MG/2ML INJ IV PRN (08:00)
[2018-10-29] MEDS ORDERED: DEXTROSE 50% WATER 50ML SYRINGE IV PRN (08:00)
[2018-10-29] MEDS: AMLODIPINE 5MG TABLET PO SCH ×2 (09:31→21:11)
[2018-10-29] MEDS: MORPHINE SULFATE 4 MG/ML CPJ (NOT FOR IM USE) IV PRN ×2 (09:33→21:12)
[2018-10-29] MEDS ORDERED: INSULIN GLARGINE UD 100 UNITS/ML SYR SUBCUT SCH (10:00)
[2018-10-29] MEDS: INSULIN LISPRO 100 UNITS/ML SUBCUT SCH ×4 (10:07→21:12)
[2018-10-29 12:00] VITALS: BP 128/74
[2018-10-29] MEDS ORDERED: INSULIN LISPRO 100 UNITS/ML SUBCUT SCH (12:40)
[2018-10-29 16:00] VITALS: BP 144/86
[2018-10-29 20:05] VITALS: BP 161/72
[2018-10-29] MEDS: NICOTINE 14MG PATCH TD SCH (21:11)
[2018-10-30] VITALS: BP 170/76
[2018-10-30 04:00] VITALS: BP 153/71
[2018-10-30] MEDS: BLOOD SUGAR DIAGNOSTIC STRIP TEST SCH ×4 (06:17→21:00)
[2018-10-30 06:31] LABS: BASOPHILS % 0.8 % (0.0-2.0); EOSINOPHILS % 6.4 % (0.0-5.0); HEMATOCRIT. 34.8 % (36.0-48.0); HEMOGLOBIN. 11.2 g/dL (12.0-16.0); LYMPHOCYTES % 25.5 % (20.0-50.0); MEAN CORPUSCULAR HEMOGLOBIN 27.9 pg (28.0-32.0); MEAN CORPUSCULAR VOLUME 86.6 fL (81.0-99.0); MEAN PLATELET VOLUME 9.6 fl (7.4-10.4); MONOCYTES % 9.1 % (2.0-8.0); NEUTROPHILS % 58.2 % (40.0-76.0); PLATELET 274 x1000/uL (130-400); RED BLOOD CELL COUNT 4.02 mill/uL (4.2-5.4); RED CELL DISTRIBUTION WIDTH 18.8 % (11.6-14.6)
[2018-10-30 08:00] VITALS: BP 157/59
[2018-10-30] MEDS: AMLODIPINE 5MG TABLET PO SCH ×2 (09:15→23:23)
[2018-10-30] MEDS: NICOTINE 14MG PATCH TD SCH (09:16)
[2018-10-30] MEDS: MORPHINE SULFATE 4 MG/ML CPJ (NOT FOR IM USE) IV PRN ×3 (09:18→20:17)
[2018-10-30] MEDS: INSULIN LISPRO 100 UNITS/ML SUBCUT SCH ×5 (09:38→23:25)
[2018-10-30 12:00] VITALS: BP 152/118
[2018-10-30] MEDS ORDERED: POLYETHYLENE GLYCOL 3350 (17GM) 1 DOSE PACK PO SCH (14:00)
[2018-10-30] MEDS ORDERED: DOCUSATE SODIUM 250MG CAPSULE PO PRN (14:15)
[2018-10-30 16:00] VITALS: BP 141/95
[2018-10-30] MEDS ORDERED: HEPARIN SODIUM 1,000 UNIT/1ML VIAL IV NR (16:41)
[2018-10-30] MEDS ORDERED: HEPARIN SODIUM 1,000 UNIT/1ML VIAL IV ONE (16:45)
[2018-10-31 07:08] LABS: BASOPHILS % 0.8 % (0.0-2.0); EOSINOPHILS % 7.8 % (0.0-5.0); HEMATOCRIT. 32.6 % (36.0-48.0); HEMOGLOBIN. 10.4 g/dL (12.0-16.0); LYMPHOCYTES % 27.5 % (20.0-50.0); MEAN CORPUSCULAR HEMOGLOBIN 27.9 pg (28.0-32.0); MEAN CORPUSCULAR VOLUME 87.3 fL (81.0-99.0); MEAN PLATELET VOLUME 9.8 fl (7.4-10.4); MONOCYTES % 10.5 % (2.0-8.0); NEUTROPHILS % 53.4 % (40.0-76.0); PLATELET 268 x1000/uL (130-400); RED BLOOD CELL COUNT 3.73 mill/uL (4.2-5.4); RED CELL DISTRIBUTION WIDTH 18.8 % (11.6-14.6)
[2018-10-31] MEDS: INSULIN LISPRO 100 UNITS/ML SUBCUT SCH ×7 (07:40→22:16)
[2018-10-31] MEDS: MORPHINE SULFATE 4 MG/ML CPJ (NOT FOR IM USE) IV PRN ×4 (07:41→23:27)
[2018-10-31 08:00] VITALS: BP 161/75
[2018-10-31] MEDS: BLOOD SUGAR DIAGNOSTIC STRIP TEST SCH ×4 (08:34→21:00)
[2018-10-31] MEDS: AMLODIPINE 5MG TABLET PO SCH ×2 (08:59→20:53)
[2018-10-31] MEDS: NICOTINE 14MG PATCH TD SCH (09:00)
[2018-10-31] MEDS ORDERED: NA PHOS,M-B/NA PHOS,DI-BA ENEMA 118ML PR NR (09:45)
[2018-10-31 12:00] VITALS: BP 155/67
[2018-10-31 16:00] VITALS: BP 169/81
[2018-10-31 20:00] VITALS: BP 190/87
[2018-10-31] MEDS: ZOLPIDEM TARTRATE 5MG TABLET PO PRN (20:51)
[2018-11-01] VITALS: BP 157/79
[2018-11-01 04:00] VITALS: BP 153/77
[2018-11-01] MEDS: MORPHINE SULFATE 4 MG/ML CPJ (NOT FOR IM USE) IV PRN ×3 (05:49→20:32)
[2018-11-01 06:10] LABS: BASOPHILS % 0.8 % (0.0-2.0); EOSINOPHILS % 6.9 % (0.0-5.0); HEMATOCRIT. 32.9 % (36.0-48.0); HEMOGLOBIN. 10.4 g/dL (12.0-16.0); LYMPHOCYTES % 23.7 % (20.0-50.0); MEAN CORPUSCULAR HEMOGLOBIN 27.7 pg (28.0-32.0); MEAN CORPUSCULAR VOLUME 87.7 fL (81.0-99.0); MEAN PLATELET VOLUME 9.3 fl (7.4-10.4); MONOCYTES % 10.3 % (2.0-8.0); NEUTROPHILS % 58.3 % (40.0-76.0); PLATELET 313 x1000/uL (130-400); RED BLOOD CELL COUNT 3.75 mill/uL (4.2-5.4); RED CELL DISTRIBUTION WIDTH 18.9 % (11.6-14.6)
[2018-11-01] MEDS: BLOOD SUGAR DIAGNOSTIC STRIP TEST SCH ×4 (07:40→22:59)
[2018-11-01 08:00] VITALS: BP 142/72
[2018-11-01] MEDS: INSULIN LISPRO 100 UNITS/ML SUBCUT SCH ×7 (08:10→23:04)
[2018-11-01 09:12] LABS: SACCHAROMYCES CEREVISIAE IGM <20.0 Units (0.0-24.9)
[2018-11-01] MEDS: AMLODIPINE 5MG TABLET PO SCH ×2 (10:04→22:59)
[2018-11-01] MEDS: NICOTINE 14MG PATCH TD SCH (10:04)
[2018-11-01 12:00] VITALS: BP 138/79
[2018-11-01 13:10] LABS: ATYPICAL pANCA <1:20 titer (Neg:<1:20)
[2018-11-01 16:00] VITALS: BP 127/80
[2018-11-01 19:46] VITALS: BP 170/74
[2018-11-01] MEDS: ZOLPIDEM TARTRATE 5MG TABLET PO PRN (22:59)
[2018-11-02] VITALS: BP 140/56
[2018-11-02 04:00] VITALS: BP 148/62
[2018-11-02] MEDS: BLOOD SUGAR DIAGNOSTIC STRIP TEST SCH ×2 (07:13→12:40)
[2018-11-02] MEDS: INSULIN LISPRO 100 UNITS/ML SUBCUT SCH ×4 (07:14→13:10)
[2018-11-02 08:00] VITALS: BP 153/57
[2018-11-02] MEDS: MORPHINE SULFATE 4 MG/ML CPJ (NOT FOR IM USE) IV PRN (09:26)
[2018-11-02] MEDS: NICOTINE 14MG PATCH TD SCH (09:34)
[2018-11-02] MEDS: AMLODIPINE 5MG TABLET PO SCH (09:34)
[2018-11-02 10:13] LABS: SACCHAROMYCES CEREVISIAE IGG 20.5 Units (0.0-24.9)
[2018-11-02 12:00] VITALS: BP 165/73
== END 2018-11-02 13:20 | disposition left against medical advice (07) | DRG 249 ==
LOC: ER 18:23 → 7WST 10-29 01:54 → EDBEDREQTM 10-29 01:56 → EDBEDREQSVC 10-29 01:56 → EDBEDREQDT 10-29 01:56 → EDBEDREQ 10-29 01:56 → ENRESERV 10-29 03:15
PROVIDERS: ADMIT Internal Medicine; ATTEND Internal Medicine
PROC: 5A1D70Z Performance of Urinary Filtration, Intermittent, Less than 6 Hours Per Day (ICD-10-PCS; 2018-10-29)
PROC: 5A1D70Z Performance of Urinary Filtration, Intermittent, Less than 6 Hours Per Day (ICD-10-PCS; 2018-10-30)
PROC: 5A1D70Z Performance of Urinary Filtration, Intermittent, Less than 6 Hours Per Day (ICD-10-PCS; 2018-11-01)
PROC: 0JBQ0ZZ Excision of Right Foot Subcutaneous Tissue and Fascia, Open Approach (ICD-10-PCS; principal; 2018-11-02)
DX: A08.4 Viral intestinal infection, unspecified (principal); E11.621 Type 2 diabetes mellitus with foot ulcer; E11.22 Type 2 diabetes mellitus with diabetic chronic kidney disease; E44.1 Mild protein-calorie malnutrition; I27.20 Pulmonary hypertension, unspecified; E11.65 Type 2 diabetes mellitus with hyperglycemia; I13.11 Hypertensive heart and chronic kidney disease without heart failure, with stage 5 chronic kidney disease, or end stage renal disease; L97.519 Non-pressure chronic ulcer of other part of right foot with unspecified severity; N18.6 End stage renal disease; D63.8 Anemia in other chronic diseases classified elsewhere; K57.30 Diverticulosis of large intestine without perforation or abscess without bleeding; D25.9 Leiomyoma of uterus, unspecified; E78.5 Hyperlipidemia, unspecified; L57.0 Actinic keratosis; F17.210 Nicotine dependence, cigarettes, uncomplicated; K59.00 Constipation, unspecified; L84 Corns and callosities; Z98.891 History of uterine scar from previous surgery; Z99.2 Dependence on renal dialysis; Z28.29 Immunization not carried out because of patient decision for other reason; Z79.899 Other long term (current) drug therapy; Z68.29 Body mass index [BMI] 29.0-29.9, adult
CPT/HCPCS: 36415; 71045; 73522; 74176; 80048; 82962; 83605; 83880; 84145; 84484; 86256; 86671; 93005; 97162; 99285; J1644; J1815; J1885; J2270; J2405; J2543; J3490; J7030

== ENCOUNTER 2018-12-13 11:22 | Emergency (ER) | payer MEDICAID, OTHER ==
[~2018-12-13] VITALS: Ht 162.6 cm; Wt 71.0 kg
[2018-12-13 13:12] LABS: BASOPHILS % 0.4 % (0.0-2.0); EOSINOPHILS % 3.5 % (0.0-5.0); HEMATOCRIT. 37.9 % (36.0-48.0); HEMOGLOBIN. 12.2 g/dL (12.0-16.0); LYMPHOCYTES % 16.8 % (20.0-50.0); MEAN CORPUSCULAR HEMOGLOBIN 28.2 pg (28.0-32.0); MEAN CORPUSCULAR VOLUME 87.5 fL (81.0-99.0); MEAN PLATELET VOLUME 9.1 fl (7.4-10.4); MONOCYTES % 8.7 % (2.0-8.0); NEUTROPHILS % 70.6 % (40.0-76.0); PLATELET 397 x1000/uL (130-400); RED BLOOD CELL COUNT 4.33 mill/uL (4.2-5.4); RED CELL DISTRIBUTION WIDTH 16.8 % (11.6-14.6)
[2018-12-13 13:15] LABS: CHLORIDE 102 mEq/L (98-107)
[2018-12-13] MEDS ORDERED: OXYCODONE HCL/ACETAMINOPHEN 5/325MG TABLET PO ONE (13:15)
[2018-12-13 13:18] LABS: PARTIAL THROMBOPLASTIN TIME 28.2 sec (23.4-31.0); PROTHROMBIN TIME 10.6 sec (9.6-11.0)
[2018-12-13 16:30] VITALS: BP 188/80
[2018-12-13] MEDS ORDERED: KETOROLAC 30MG/ML VIAL IV ONE (16:30)
== END 2018-12-13 16:39 | disposition home or self-care (01) ==
LOC: ER 11:22 → EDBEDREQ 16:10 → ER 16:39 → CANBEDREQ 16:56
DX: M25.551 Pain in right hip (principal); N28.9 Disorder of kidney and ureter, unspecified; I13.11 Hypertensive heart and chronic kidney disease without heart failure, with stage 5 chronic kidney disease, or end stage renal disease; N18.6 End stage renal disease; Z99.2 Dependence on renal dialysis; E11.9 Type 2 diabetes mellitus without complications; F17.200 Nicotine dependence, unspecified, uncomplicated; Z79.899 Other long term (current) drug therapy; Z79.4 Long term (current) use of insulin
CPT/HCPCS: 36415; 71045; 73502; 80053; 83880; 84484; 85025; 85610; 85730; 93005; 93971; 96374; 99284; J1885

== ENCOUNTER 2018-12-15 10:40 | Emergency (ER) | payer MEDICAID ==
[~2018-12-15] VITALS: Ht 162.6 cm; Wt 91.0 kg
[2018-12-15 11:37] LABS: BASOPHILS % 0.7 % (0.0-2.0); EOSINOPHILS % 3.3 % (0.0-5.0); HEMATOCRIT. 36.4 % (36.0-48.0); HEMOGLOBIN. 11.5 g/dL (12.0-16.0); LYMPHOCYTES % 10.5 % (20.0-50.0); MEAN CORPUSCULAR HEMOGLOBIN 27.8 pg (28.0-32.0); MEAN CORPUSCULAR VOLUME 87.8 fL (81.0-99.0); MEAN PLATELET VOLUME 8.6 fl (7.4-10.4); MONOCYTES % 8.7 % (2.0-8.0); NEUTROPHILS % 76.8 % (40.0-76.0); PLATELET 332 x1000/uL (130-400); RED BLOOD CELL COUNT 4.15 mill/uL (4.2-5.4); RED CELL DISTRIBUTION WIDTH 16.4 % (11.6-14.6)
[2018-12-15 11:42] LABS: CHLORIDE 105 mEq/L (98-107)
[2018-12-15 11:46] LABS: PARTIAL THROMBOPLASTIN TIME 29.4 sec (23.4-31.0); PROTHROMBIN TIME 10.1 sec (9.6-11.0)
[2018-12-15 11:51] LABS: PHOSPHORUS 5.4 mg/dL (2.5-4.9)
[2018-12-15] MEDS ORDERED: ONDANSETRON HCL 4MG/2ML INJ IV ONE ×2 (12:15→15:45)
[2018-12-15] MEDS ORDERED: MORPHINE SULFATE 4 MG/ML CPJ (NOT FOR IM USE) IV ONE ×2 (12:15→15:45)
[2018-12-15] MEDS ORDERED: INSULIN REGULAR (HUMULIN R) 300UNITS/3ML IV ONE (13:45)
[2018-12-15] MEDS ORDERED: DEXTROSE 50% WATER 50ML SYRINGE IV ONE (13:45)
[2018-12-15] MEDS ORDERED: SODIUM POLYSTYRENE SULFONATE 15 G/60 ML BOT PO ONE (13:45)
[2018-12-15 15:42] VITALS: BP 176/78
[2018-12-15] MEDS ORDERED: LORAZEPAM 2MG/ML CPJ IV ONE (15:45)
== END 2018-12-15 18:20 | disposition short-term general hospital (02) ==
LOC: ER 10:40 → CANBEDREQ 13:30 → ER 18:20
DX: I13.10 Hypertensive heart and chronic kidney disease without heart failure, with stage 1 through stage 4 chronic kidney disease, or unspecified chronic kidney disease (principal); E11.22 Type 2 diabetes mellitus with diabetic chronic kidney disease; N17.9 Acute kidney failure, unspecified; N18.9 Chronic kidney disease, unspecified; E87.8 Other disorders of electrolyte and fluid balance, not elsewhere classified; M79.604 Pain in right leg; Z79.4 Long term (current) use of insulin; Z99.2 Dependence on renal dialysis; Z98.890 Other specified postprocedural states; Z79.899 Other long term (current) drug therapy; W18.39XA Other fall on same level, initial encounter; Y93.89 Activity, other specified; Y92.89 Other specified places as the place of occurrence of the external cause; Y99.8 Other external cause status
CPT/HCPCS: 36415; 71045; 73502; 73552; 80053; 83735; 84100; 84484; 85025; 85610; 85730; 93005; 96374; 96375; 96376; 99285; J1815; J2060; J2270; J2405

== ENCOUNTER 2019-07-08 15:42 | Emergency (ER) | payer MEDICAID ==
[~2019-07-08] VITALS: Ht 172.7 cm; Wt 59.0 kg
[2019-07-08 18:15] LABS: BASOPHILS % 0.9 % (0.0-2.0); EOSINOPHILS % 5.5 % (0.0-5.0); HEMOGLOBIN. 10.5 g/dL (12.0-16.0); LYMPHOCYTES % 33.3 % (20.0-50.0); MEAN CORPUSCULAR HEMOGLOBIN 30.6 pg (28.0-32.0); MEAN CORPUSCULAR VOLUME 90.2 fL (81.0-99.0); MEAN PLATELET VOLUME 9.3 fl (7.4-10.4); NEUTROPHILS % 52.3 % (40.0-76.0); PLATELET 259 x1000/uL (130-400); RED BLOOD CELL COUNT 3.44 mill/uL (4.2-5.4); RED CELL DISTRIBUTION WIDTH 15.5 % (11.6-14.6)
[2019-07-08 18:37] LABS: CHLORIDE 103 mEq/L (98-107); PARTIAL THROMBOPLASTIN TIME 84.4 sec (23.4-31.0)
[2019-07-08] MEDS ORDERED: HYDROCODONE/ACETAMINOPHEN 5/325MG TABLET PO ONE (19:30)
[2019-07-08 20:16] VITALS: BP 109/55
== END 2019-07-08 20:33 | disposition home or self-care (01) ==
LOC: ER 15:42
DX: R07.9 Chest pain, unspecified (principal); M25.552 Pain in left hip; M25.551 Pain in right hip; G89.29 Other chronic pain; I12.9 Hypertensive chronic kidney disease with stage 1 through stage 4 chronic kidney disease, or unspecified chronic kidney disease; E11.22 Type 2 diabetes mellitus with diabetic chronic kidney disease; N18.9 Chronic kidney disease, unspecified; Z79.4 Long term (current) use of insulin
CPT/HCPCS: 36415; 71045; 73521; 76604; 80053; 84484; 85025; 93005; 99284

== ENCOUNTER 2019-11-23 05:16 | Inpatient (IN) | payer MEDICAID, OTHER ==
[~2019-11-23] VITALS: Ht 160 cm; Wt 76.7 kg
[2019-11-23] MEDS ORDERED: DIAZEPAM 5 MG TABLET PO ONE (06:45)
[2019-11-23 07:27] LABS: BASOPHILS % 0.7 % (0.0-2.0); EOSINOPHILS % 2.9 % (0.0-5.0); HEMATOCRIT. 35.6 % (36.0-48.0); HEMOGLOBIN. 11.7 g/dL (12.0-16.0); LYMPHOCYTES % 14.3 % (20.0-50.0); MEAN CORPUSCULAR HEMOGLOBIN 28.7 pg (28.0-32.0); MEAN CORPUSCULAR VOLUME 87.4 fL (81.0-99.0); MEAN PLATELET VOLUME 9.1 fl (7.4-10.4); MONOCYTES % 7.9 % (2.0-8.0); NEUTROPHILS % 74.2 % (40.0-76.0); PLATELET 194 x1000/uL (130-400); RED BLOOD CELL COUNT 4.08 mill/uL (4.2-5.4); RED CELL DISTRIBUTION WIDTH 18.9 % (11.6-14.6)
[2019-11-23 07:34] LABS: CHLORIDE 104 mEq/L (98-107)
[2019-11-23] MEDS ORDERED: MAGNESIUM 2 G PREMIX 50 ML IV ONE (08:30)
[2019-11-23] MEDS ORDERED: CALCIUM GLUCONATE 100MG/ML 10ML VIAL IV ONE (08:30)
[2019-11-23] MEDS ORDERED: LORAZEPAM 2MG/ML CPJ IV ONE (09:15)
[2019-11-23] MEDS ORDERED: ONDANSETRON HCL 4MG/2ML INJ IV PRN (09:30)
[2019-11-23] MEDS ORDERED: ACETAMINOPHEN 325MG TABLET PO PRN (09:30)
[2019-11-23 10:23] LABS: PHOSPHORUS 7.1 mg/dL (2.5-4.9)
[2019-11-23] MEDS ORDERED: DEXTROSE 50% WATER 50ML SYRINGE IV PRN (12:15)
[2019-11-23] MEDS: BLOOD SUGAR DIAGNOSTIC STRIP TEST SCH ×2 (12:27→18:27)
[2019-11-23] MEDS: INSULIN LISPRO (LOW DOSE) 100 UNITS/ML SUBCUT SCH ×4 (12:49→21:00)
[2019-11-23] MEDS: CLONIDINE 0.1MG TABLET PO PRN ×3 (13:06→23:43)
[2019-11-23] MEDS ORDERED: LORAZEPAM 2MG/ML CPJ IV PRN (15:30)
[2019-11-24] VITALS (15 sets, daily range): BP systolic 132–207; BP diastolic 78–106
[2019-11-24] MEDS ORDERED: DEXTROSE 50% WATER 50ML SYRINGE IV STA (05:21)
[2019-11-24] MEDS ORDERED: SODIUM BICARBONATE 8.4% 1 MEQ/ML 50ML SYR IV SCH (05:32)
[2019-11-24] MEDS ORDERED: SODIUM POLYSTYRENE SULFONATE 15 G/60 ML BOT PO SCH (06:00)
[2019-11-24] MEDS ORDERED: INSULIN REGULAR (HUMULIN R) 300UNITS/3ML IV SCH (06:00)
[2019-11-24] MEDS ORDERED: CALCIUM GLUCONATE 1,000 MG in DEXT 5% WATER 90 ML IV SCH (06:00)
[2019-11-24] MEDS: BLOOD SUGAR DIAGNOSTIC STRIP TEST SCH ×2 (06:18→12:33)
[2019-11-24] MEDS: INSULIN LISPRO (LOW DOSE) 100 UNITS/ML SUBCUT SCH ×2 (07:50→12:50)
[2019-11-24] MEDS: LORAZEPAM 2MG/ML CPJ IV PRN ×3 (08:15→12:42)
[2019-11-24] MEDS ORDERED: ALPRAZOLAM 0.5 MG TABLET PO PRN (09:30)
[2019-11-24 11:07] LABS: BASOPHILS % 0.8 % (0.0-2.0); EOSINOPHILS % 4.2 % (0.0-5.0); HEMOGLOBIN. 12.3 g/dL (12.0-16.0); LYMPHOCYTES % 12.6 % (20.0-50.0); MEAN CORPUSCULAR HEMOGLOBIN 28.3 pg (28.0-32.0); MEAN CORPUSCULAR VOLUME 87.5 fL (81.0-99.0); MEAN PLATELET VOLUME 10.3 fl (7.4-10.4); MONOCYTES % 6.4 % (2.0-8.0); PLATELET 190 x1000/uL (130-400); RED BLOOD CELL COUNT 4.35 mill/uL (4.2-5.4); RED CELL DISTRIBUTION WIDTH 18.9 % (11.6-14.6)
[2019-11-24 11:12] LABS: CHLORIDE 101 mEq/L (98-107)
[2019-11-24 11:21] LABS: LDL CHOLESTEROL 59 mg/dL (5-100)
[2019-11-24 11:24] LABS: HDL CHOLESTEROL 71 mg/dL (40-59)
[2019-11-24] MEDS ORDERED: CEFAZOLIN 1000MG PREMIX 50 ML IV SCH (12:00)
[2019-11-24] MEDS ORDERED: CEFAZOLIN 1000MG PREMIX 50 ML IV ONE (12:37)
[2019-11-24] MEDS ORDERED: FENTANYL CITRATE/PF 50MCG/ML 2ML VIAL ONE (12:37)
[2019-11-24] MEDS ORDERED: LIDOCAINE HCL 1% 20ML VIAL (Pyxis) INJ ONE (12:42)
[2019-11-24] MEDS ORDERED: SODIUM BICARBONATE 4% (2.4MEQ) 5ML VIAL IV ONE (12:42)
[2019-11-24 12:49] LABS: PROTHROMBIN TIME 11.3 sec (9.6-11.0)
[2019-11-24] MEDS ORDERED: FENTANYL CITRATE/PF 50MCG/ML 2ML VIAL IV ONE (14:00)
== END 2019-11-24 16:45 | disposition left against medical advice (07) | DRG 206 ==
LOC: ER 05:16 → MICUSO 09:23 → 6WST 09:23 → UNDOADMIN 09:23 → ENRESERV 22:49
PROVIDERS: ADMIT Internal Medicine; ATTEND Internal Medicine
PROC: 5A1D70Z Performance of Urinary Filtration, Intermittent, Less than 6 Hours Per Day (ICD-10-PCS; principal; 2019-11-23)
PROC: 5A1D70Z Performance of Urinary Filtration, Intermittent, Less than 6 Hours Per Day (ICD-10-PCS; 2019-11-24)
PROC: 02HV33Z Insertion of Infusion Device into Superior Vena Cava, Percutaneous Approach (ICD-10-PCS; 2019-11-24)
PROC: B5181ZA Fluoroscopy of Superior Vena Cava using Low Osmolar Contrast, Guidance (ICD-10-PCS; 2019-11-24)
PROC: 0J2SXYZ Change Other Device in Head and Neck Subcutaneous Tissue and Fascia, External Approach (ICD-10-PCS; 2019-11-24)
DX: T82.838A Hemorrhage due to vascular prosthetic devices, implants and grafts, initial encounter (principal); E11.22 Type 2 diabetes mellitus with diabetic chronic kidney disease; I12.0 Hypertensive chronic kidney disease with stage 5 chronic kidney disease or end stage renal disease; E83.39 Other disorders of phosphorus metabolism; N18.6 End stage renal disease; E83.41 Hypermagnesemia; E87.5 Hyperkalemia; F41.0 Panic disorder [episodic paroxysmal anxiety]; Z99.2 Dependence on renal dialysis; Y83.8 Other surgical procedures as the cause of abnormal reaction of the patient, or of later complication, without mention of misadventure at the time of the procedure; Y92.89 Other specified places as the place of occurrence of the external cause; Z79.899 Other long term (current) drug therapy
CPT/HCPCS: 36415; 36558; 71045; 77001; 80048; 80053; 80061; 82565; 82962; 83735; 83880; 84100; 84443; 84484; 85025; 93005; 93970; 99285; C1750; C1769; J0610; J0690; J1642; J1815; J2060; J3010; J3475; J3490; J7060

== ENCOUNTER 2019-11-25 09:58 | Emergency (ER) | payer OTHER ==
[~2019-11-25] VITALS: Ht 165.1 cm; Wt 64.0 kg
[2019-11-25 11:41] LABS: CHLORIDE 101 mEq/L (98-107)
[2019-11-25 11:51] LABS: INR 1.1; PROTHROMBIN TIME 11.4 sec (9.6-11.0)
[2019-11-25 12:30] VITALS: BP 165/92
[2019-11-25 13:02] LABS: BASOPHILS % 0.7 % (0.0-2.0); EOSINOPHILS % 4.6 % (0.0-5.0); HEMATOCRIT. 32.4 % (36.0-48.0); HEMOGLOBIN. 10.6 g/dL (12.0-16.0); MEAN CORPUSCULAR HEMOGLOBIN 28.2 pg (28.0-32.0); MEAN CORPUSCULAR VOLUME 86.2 fL (81.0-99.0); MEAN PLATELET VOLUME 10.2 fl (7.4-10.4); MONOCYTES % 10.5 % (2.0-8.0); NEUTROPHILS % 64.2 % (40.0-76.0); PLATELET 197 x1000/uL (130-400); RED BLOOD CELL COUNT 3.75 mill/uL (4.2-5.4); RED CELL DISTRIBUTION WIDTH 18.1 % (11.6-14.6)
== END 2019-11-25 13:30 | disposition home or self-care (01) ==
LOC: ER 10:24
DX: Z03.818 Encounter for observation for suspected exposure to other biological agents ruled out (principal); I12.0 Hypertensive chronic kidney disease with stage 5 chronic kidney disease or end stage renal disease; E87.70 Fluid overload, unspecified; E11.22 Type 2 diabetes mellitus with diabetic chronic kidney disease; N18.6 End stage renal disease; Z99.2 Dependence on renal dialysis; Z98.890 Other specified postprocedural states; Z79.4 Long term (current) use of insulin
CPT/HCPCS: 36415; 71045; 80053; 82962; 84484; 85025; 85610; 93005; 99285; U0003

== ENCOUNTER 2020-03-05 10:36 | Inpatient (IN) | payer OTHER ==
[~2020-03-05] VITALS: Ht 162.6 cm; Wt 72.6 kg
[2020-03-05] VITALS (35 sets, daily range): BP systolic 74–178; BP diastolic 43–75
[2020-03-05] MEDS ORDERED: VECURONIUM BROMIDE 10 MG/VIAL IV ONE ×2 (10:42→11:15)
[2020-03-05] MEDS ORDERED: ETOMIDATE 2MG/ML 10ML VIAL IV ONE ×2 (10:42→11:15)
[2020-03-05] MEDS ORDERED: SODIUM CHLORIDE 0.9% 10ML VIAL ONE (10:42)
[2020-03-05] MEDS ORDERED: SODIUM BICARBONATE 8.4% 1 MEQ/ML 50ML SYR IV ONE (10:45)
[2020-03-05] MEDS ORDERED: CALCIUM CHLORIDE 1GM/10ML SYR IV ONE (10:45)
[2020-03-05] MEDS ORDERED: DEXTROSE 50% WATER 50ML SYRINGE IV ONE (10:45)
[2020-03-05] MEDS ORDERED: INSULIN REGULAR (HUMULIN R) 300UNITS/3ML IV ONE (10:45)
[2020-03-05 11:13] LABS: BG BASE EXCESS -5.1 mmol/L (-2.0-2.0); BG CARBOXYHEMOGLOBIN 0.3 % (0.5-1.5); BG FRACTION INSPIRED OXYGEN 100; BG HCO3 ACT 24.9 mmol/L (22.0-26.0); BG METHEMOGLOBIN 0.3 % (0.0-1.5); BG OXYHEMOGLOBIN 96.4 % (94.0-97.0); BG PCO2 75.1 mmHg (35.0-45.0); BG PH 7.138 (7.350-7.450); BG PO2 129.6 mmHg (75.0-100.0); BG SAMPLE SITE RIGHT BRACHIAL; BG TIDAL VOLUME(mL) 400 mL; BG TOTAL HEMOGLOBIN 10.9 g/dL (12.0-18.0); BG VENT MODE VENT - A/C; BG VENT RATE 16 set
[2020-03-05 11:15] LABS: BASOPHILS % 0.4 % (0.0-2.0); EOSINOPHILS % 0.1 % (0.0-5.0); HEMATOCRIT. 34.9 % (36.0-48.0); HEMOGLOBIN. 11.6 g/dL (12.0-16.0); MEAN CORPUSCULAR HEMOGLOBIN 29.8 pg (28.0-32.0); MEAN PLATELET VOLUME 9.6 fl (7.4-10.4); MONOCYTES % 14.8 % (2.0-8.0); NEUTROPHILS % 72.7 % (40.0-76.0); PLATELET 367 x1000/uL (130-400); RED BLOOD CELL COUNT 3.88 mill/uL (4.2-5.4); RED CELL DISTRIBUTION WIDTH 18.4 % (11.6-14.6)
[2020-03-05] MEDS ORDERED: MIDAZOLAM HCL 100 MG in DEXT 5% WATER 80 ML IV ONE (11:15)
[2020-03-05] MEDS ORDERED: MIDAZOLAM HCL 50 MG in DEXTROSE 5% WATER 40 ML IV ONE (11:15)
[2020-03-05] MEDS ORDERED: DILTIAZEM HCL 5MG/ML 5ML VIAL IV ONE ×2 (11:15)
[2020-03-05 11:20] LABS: CHLORIDE 95 mEq/L (98-107)
[2020-03-05 11:29] LABS: CLARITY URINE CLEAR (CLEAR); COLOR URINE DARK YELLOW (YELLOW); KETONES URINE NEGATIVE (NEGATIVE); LEUKOCYTE ESTERASE URINE TRACE (NEGATIVE); NITRITE URINE NEGATIVE (NEGATIVE); OCCULT BLOOD URINE NEGATIVE (NEGATIVE); PROTEIN URINE 4+ (NEGATIVE); SPECIFIC GRAVITY URINE 1.024 (1.005-1.030); UROBILINOGEN URINE 0.2 E.U./dL (0.2-1.0)
[2020-03-05 11:29] LABS: INR 1.2; PROTHROMBIN TIME 12.3 sec (9.6-11.0)
[2020-03-05 11:35] LABS: ETHANOL BLOOD < 10 mg/dL
[2020-03-05 11:48] LABS: PHOSPHORUS 9.7 mg/dL (2.5-4.9)
[2020-03-05 11:50] LABS: CREATINE KINASE 2129 IU/L (26-192)
[2020-03-05] MEDS ORDERED: LEVOFLOXACIN 500MG PREMIX 100 ML IV ONE (12:00)
[2020-03-05] MEDS ORDERED: PIPERACILLIN/TAZ 3.375G PREMIX 50 ML IV ONE (12:00)
[2020-03-05 12:15] LABS: *COCAINE SCREEN URINE PRESUMTIVE POSITIVE (NEGATIVE)
[2020-03-05 12:16] LABS: *AMPHETAMINES SCREEN URINE NEGATIVE (NEGATIVE); *BARBITURATES SCREEN URINE NEGATIVE (NEGATIVE); *BENZODIAZEPINES SCREEN URINE NEGATIVE (NEGATIVE); CANNABINOID URINE SCREEN NEGATIVE (NEGATIVE); METHADONE URINE SCREEN NEGATIVE (NEGATIVE); OPIATES URINE SCREEN PRESUMTIVE POSITIVE (NEGATIVE); PHENCYCLIDINE URINE SCREEN NEGATIVE (NEGATIVE)
[2020-03-05] MEDS ORDERED: DILTIAZEM HCL 125 MG in DEXT 5% WATER 100 ML IV NR ×2 (12:45→13:00)
[2020-03-05] MEDS ORDERED: SODIUM CHLORIDE 0.9% 1,000 ML IV ONE (12:51)
[2020-03-05] MEDS ORDERED: ENOXAPARIN 60MG/0.6ML SYR SUBCUT NR (12:55)
[2020-03-05 13:11] LABS: FIBRINOGEN > 900 mg/dL (200-400)
[2020-03-05 13:11] LABS: BG BASE EXCESS -6.4 mmol/L (-2.0-2.0); BG CARBOXYHEMOGLOBIN 0.3 % (0.5-1.5); BG HCO3 ACT 23.3 mmol/L (22.0-26.0); BG METHEMOGLOBIN 0.3 % (0.0-1.5); BG OXYHEMOGLOBIN 97.4 % (94.0-97.0); BG PCO2 70.8 mmHg (35.0-45.0); BG PH 7.136 (7.350-7.450); BG PO2 148.3 mmHg (75.0-100.0); BG SAMPLE SITE RIGHT BRACHIAL; BG TIDAL VOLUME(mL) 400 mL; BG TOTAL HEMOGLOBIN 10.8 g/dL (12.0-18.0); BG VENT MODE VENT - A/C; BG VENT RATE 20 set
[2020-03-05] MEDS ORDERED: VANCOMYCIN 1 G PREMIX 200 ML IV ONE (13:45)
[2020-03-05] MEDS ORDERED: PROPOFOL 10MG/ML 100ML 100 ML IV PRN (14:15)
[2020-03-05] MEDS ORDERED: IPRATROPIUM BROMIDE (0.02%) 0.5MG/2.5ML NEB HHN PRN (14:15)
[2020-03-05] MEDS ORDERED: DEXTROSE 50% WATER 50ML SYRINGE IV PRN (15:00)
[2020-03-05] MEDS ORDERED: CEFEPIME 1,000 MG in DEXTROSE 5% WATER 50 ML IV SCH (15:00)
[2020-03-05] MEDS: BLOOD SUGAR DIAGNOSTIC STRIP TEST SCH ×2 (15:25→22:00)
[2020-03-05] MEDS: PHENYLEPHRINE 100 MG in DEXT 5% WATER 240 ML IV PRN (15:26)
[2020-03-05] MEDS ORDERED: SODIUM BICARBONATE 8.4% 1 MEQ/ML 50ML SYR IV NR (16:00)
[2020-03-05 17:08] LABS: BG BASE EXCESS -5.8 mmol/L (-2.0-2.0); BG CARBOXYHEMOGLOBIN 0.2 % (0.5-1.5); BG DEOXYHEMOGLOBIN 3.3 % (0.0-5.0); BG FRACTION INSPIRED OXYGEN 70; BG HCO3 ACT 20.5 mmol/L (22.0-26.0); BG METHEMOGLOBIN 0.2 % (0.0-1.5); BG OXYGEN SATURATION 96.7 % (92.0-98.5); BG OXYHEMOGLOBIN 96.3 % (94.0-97.0); BG PH 7.287 (7.350-7.450); BG PO2 101.3 mmHg (75.0-100.0); BG SAMPLE SITE RIGHT RADIAL; BG TIDAL VOLUME(mL) 450 mL; BG TOTAL HEMOGLOBIN 10.6 g/dL (12.0-18.0); BG VENT MODE VENT - A/C; BG VENT RATE 26 set
[2020-03-05] MEDS: INSULIN LISPRO 100 UNITS/ML SUBCUT SCH ×2 (17:32→22:18)
[2020-03-05] MEDS ORDERED: IPRATROPIUM BROMIDE (0.02%) 0.5MG/2.5ML NEB HHN SCH (18:00)
[2020-03-05] MEDS ORDERED: LORAZEPAM 2MG/ML CPJ IV PRN (18:22)
[2020-03-05] MEDS ORDERED: ONDANSETRON HCL 4MG/2ML INJ IV PRN (19:00)
[2020-03-05] MEDS ORDERED: IPRATROPIUM/ALBUTEROL 0.5-3(2.5)MG/3ML NEB HHN PRN (19:00)
[2020-03-05] MEDS ORDERED: ACETAMINOPHEN 650MG/20.3ML UDC GT PRN (19:00)
[2020-03-05 19:04] LABS: T4 FREE 0.83 ng/dL (0.76-1.46)
[2020-03-05] MEDS: ACETYLCYSTEINE 100MG/ML 10% VIAL 4ML INH SCH (21:26)
[2020-03-05] MEDS: IPRATROPIUM BROMIDE (0.02%) 0.5MG/2.5ML NEB HHN SCH (21:26)
[2020-03-05 22:08] LABS: VITAMIN B12 SERUM > 2000.0 pg/mL (211-911)
[2020-03-05] MEDS: METRONIDAZOLE 500MG TABLET PO SCH (22:25)
[2020-03-06] VITALS (93 sets, daily range): BP systolic 82–203; BP diastolic 46–95
[2020-03-06] MEDS: ACETYLCYSTEINE 100MG/ML 10% VIAL 4ML INH SCH ×3 (00:55→15:54)
[2020-03-06] MEDS: IPRATROPIUM BROMIDE (0.02%) 0.5MG/2.5ML NEB HHN SCH ×5 (01:24→15:55)
[2020-03-06] MEDS: BLOOD SUGAR DIAGNOSTIC STRIP TEST SCH ×4 (05:20→20:53)
[2020-03-06 05:50] LABS: BASOPHILS % 0.3 % (0.0-2.0); EOSINOPHILS % 0.3 % (0.0-5.0); HEMATOCRIT. 32.2 % (36.0-48.0); HEMOGLOBIN. 10.5 g/dL (12.0-16.0); LYMPHOCYTES % 7.5 % (20.0-50.0); MEAN CORPUSCULAR HEMOGLOBIN 29.5 pg (28.0-32.0); MEAN CORPUSCULAR VOLUME 90.4 fL (81.0-99.0); MEAN PLATELET VOLUME 9.6 fl (7.4-10.4); MONOCYTES % 14.3 % (2.0-8.0); NEUTROPHILS % 77.6 % (40.0-76.0); PLATELET 327 x1000/uL (130-400); RED BLOOD CELL COUNT 3.56 mill/uL (4.2-5.4); RED CELL DISTRIBUTION WIDTH 18.1 % (11.6-14.6)
[2020-03-06] MEDS ORDERED: DILTIAZEM HCL 125 MG in DEXT 5% WATER 100 ML IV PRN (06:15)
[2020-03-06] MEDS: INSULIN LISPRO 100 UNITS/ML SUBCUT SCH ×4 (07:00→21:38)
[2020-03-06] MEDS: METRONIDAZOLE 500MG TABLET PO SCH ×3 (07:04→22:48)
[2020-03-06 09:32] LABS: BG BASE EXCESS -7.5 mmol/L (-2.0-2.0); BG CARBOXYHEMOGLOBIN 0.6 % (0.5-1.5); BG DEOXYHEMOGLOBIN 0.6 % (0.0-5.0); BG FRACTION INSPIRED OXYGEN 70; BG HCO3 ACT 19.3 mmol/L (22.0-26.0); BG METHEMOGLOBIN 0.2 % (0.0-1.5); BG OXYGEN SATURATION 99.4 % (92.0-98.5); BG OXYHEMOGLOBIN 98.6 % (94.0-97.0); BG PCO2 44.7 mmHg (35.0-45.0); BG PH 7.254 (7.350-7.450); BG PO2 204.4 mmHg (75.0-100.0); BG SAMPLE SITE RIGHT RADIAL; BG TIDAL VOLUME(mL) 450 mL; BG TOTAL HEMOGLOBIN 11.5 g/dL (12.0-18.0); BG VENT MODE VENT - A/C; BG VENT RATE 26 set
[2020-03-06] MEDS: PANTOPRAZOLE SODIUM 40 MG/VIAL IV SCH (09:52)
[2020-03-06] MEDS: MULTIVITAMINS,THER W-MINERALS TABLET PO SCH (09:53)
[2020-03-06] MEDS: FOLIC ACID 1MG TABLET PO SCH (09:53)
[2020-03-06] MEDS: THIAMINE HCL 100MG TABLET PO SCH (09:53)
[2020-03-06] MEDS: ENOXAPARIN 30MG/0.3ML SYR SUBCUT SCH (14:13)
[2020-03-06] MEDS ORDERED: PROPOFOL 10MG/ML 100ML 100 ML IV PRN (18:00)
[2020-03-06] MEDS ORDERED: VANCOMYCIN 500 MG PREMIX 100 ML IV NR (18:00)
[2020-03-06] MEDS: CEFEPIME 1,000 MG in DEXTROSE 5% WATER 50 ML IV SCH (18:06)
[2020-03-07] VITALS (105 sets, daily range): BP systolic 57–167; BP diastolic 34–100
[2020-03-07] MEDS: IPRATROPIUM BROMIDE (0.02%) 0.5MG/2.5ML NEB HHN SCH ×5 (00:56→23:58)
[2020-03-07] MEDS: BLOOD SUGAR DIAGNOSTIC STRIP TEST SCH ×4 (03:00→21:16)
[2020-03-07 05:46] LABS: BASOPHILS % 0.4 % (0.0-2.0); EOSINOPHILS % 0.6 % (0.0-5.0); HEMATOCRIT. 29.1 % (36.0-48.0); HEMOGLOBIN. 9.5 g/dL (12.0-16.0); LYMPHOCYTES % 10.2 % (20.0-50.0); MEAN CORPUSCULAR HEMOGLOBIN 29.4 pg (28.0-32.0); MEAN CORPUSCULAR VOLUME 89.7 fL (81.0-99.0); MEAN PLATELET VOLUME 9.3 fl (7.4-10.4); MONOCYTES % 14.6 % (2.0-8.0); NEUTROPHILS % 74.2 % (40.0-76.0); PLATELET 283 x1000/uL (130-400); RED BLOOD CELL COUNT 3.24 mill/uL (4.2-5.4); RED CELL DISTRIBUTION WIDTH 18.5 % (11.6-14.6)
[2020-03-07] MEDS: METRONIDAZOLE 500MG TABLET PO SCH ×3 (06:10→22:28)
[2020-03-07] MEDS ORDERED: INSULIN REGULAR (HUMULIN R) 300UNITS/3ML IV SCH (06:24)
[2020-03-07] MEDS ORDERED: SODIUM BICARBONATE 8.4% 1 MEQ/ML 50ML SYR IV STA (06:24)
[2020-03-07] MEDS ORDERED: DEXTROSE 50% WATER 50ML SYRINGE IV SCH (06:24)
[2020-03-07] MEDS: INSULIN LISPRO 100 UNITS/ML SUBCUT SCH ×4 (06:38→21:24)
[2020-03-07] MEDS ORDERED: SODIUM BICARBONATE 8.4% 1 MEQ/ML 50ML SYR IV SCH (06:40)
[2020-03-07 07:49] LABS: BG CARBOXYHEMOGLOBIN 0.3 % (0.5-1.5); BG DEOXYHEMOGLOBIN 6.1 % (0.0-5.0); BG HCO3 ACT 17.8 mmol/L (22.0-26.0); BG METHEMOGLOBIN 0.2 % (0.0-1.5); BG OXYGEN SATURATION 93.9 % (92.0-98.5); BG OXYHEMOGLOBIN 93.4 % (94.0-97.0); BG PCO2 37.1 mmHg (35.0-45.0); BG PH 7.298 (7.350-7.450); BG PO2 80.7 mmHg (75.0-100.0); BG SAMPLE SITE RIGHT BRACHIAL; BG TIDAL VOLUME(mL) 450 mL; BG TOTAL HEMOGLOBIN 9.1 g/dL (12.0-18.0); BG VENT MODE VENT - A/C; BG VENT RATE 26 set
[2020-03-07] MEDS: ACETYLCYSTEINE 100MG/ML 10% VIAL 4ML INH SCH ×2 (09:30→23:58)
[2020-03-07] MEDS: FOLIC ACID 1MG TABLET PO SCH (09:46)
[2020-03-07] MEDS: MULTIVITAMINS,THER W-MINERALS TABLET PO SCH (09:46)
[2020-03-07] MEDS: THIAMINE HCL 100MG TABLET PO SCH (09:46)
[2020-03-07] MEDS: PANTOPRAZOLE SODIUM 40 MG/VIAL IV SCH (09:47)
[2020-03-07] MEDS: ENOXAPARIN 30MG/0.3ML SYR SUBCUT SCH (13:34)
[2020-03-07] MEDS: DILTIAZEM HCL 125 MG in DEXT 5% WATER 100 ML IV PRN ×2 (14:04→16:46)
[2020-03-07] MEDS: DEXAMETHASONE 10 MG/ML VIAL IV SCH (14:06)
[2020-03-07] MEDS: CEFEPIME 1,000 MG in DEXTROSE 5% WATER 50 ML IV SCH (16:45)
[2020-03-07] MEDS ORDERED: PROPOFOL 10MG/ML 100ML 100 ML IV PRN (21:45)
[2020-03-08] VITALS (109 sets, daily range): BP systolic 91–154; BP diastolic 47–83
[2020-03-08] MEDS: DILTIAZEM HCL 125 MG in DEXT 5% WATER 100 ML IV PRN ×3 (01:11→18:48)
[2020-03-08] MEDS: PHENYLEPHRINE 100 MG in DEXT 5% WATER 240 ML IV PRN (02:17)
[2020-03-08] MEDS: INSULIN LISPRO 100 UNITS/ML SUBCUT SCH ×3 (03:20→18:15)
[2020-03-08] MEDS: BLOOD SUGAR DIAGNOSTIC STRIP TEST SCH ×3 (03:37→18:15)
[2020-03-08] MEDS: IPRATROPIUM BROMIDE (0.02%) 0.5MG/2.5ML NEB HHN SCH ×5 (04:12→21:29)
[2020-03-08 05:14] LABS: HEMATOCRIT. 30.8 % (36.0-48.0); HEMOGLOBIN. 9.8 g/dL (12.0-16.0); MEAN CORPUSCULAR HEMOGLOBIN 28.7 pg (28.0-32.0); MEAN CORPUSCULAR VOLUME 90.5 fL (81.0-99.0); MEAN PLATELET VOLUME 9.3 fl (7.4-10.4); PLATELET 242 x1000/uL (130-400); RED CELL DISTRIBUTION WIDTH 18.8 % (11.6-14.6)
[2020-03-08] MEDS: METRONIDAZOLE 500MG TABLET PO SCH ×3 (05:33→22:05)
[2020-03-08] MEDS ORDERED: DEXTROSE 50% WATER 50ML SYRINGE IV PRN (07:45)
[2020-03-08] MEDS: ACETYLCYSTEINE 100MG/ML 10% VIAL 4ML INH SCH ×2 (08:07→16:32)
[2020-03-08 08:18] LABS: BG BASE EXCESS -4.1 mmol/L (-2.0-2.0); BG CARBOXYHEMOGLOBIN 0.2 % (0.5-1.5); BG DEOXYHEMOGLOBIN 3.4 % (0.0-5.0); BG FRACTION INSPIRED OXYGEN 35; BG HCO3 ACT 19.4 mmol/L (22.0-26.0); BG METHEMOGLOBIN 0.3 % (0.0-1.5); BG OXYGEN SATURATION 96.6 % (92.0-98.5); BG OXYHEMOGLOBIN 96.1 % (94.0-97.0); BG PCO2 29.9 mmHg (35.0-45.0); BG PO2 91.8 mmHg (75.0-100.0); BG SAMPLE SITE RIGHT RADIAL; BG TIDAL VOLUME(mL) 500 mL; BG VENT MODE VENT - A/C; BG VENT RATE 24 set
[2020-03-08] MEDS: PANTOPRAZOLE SODIUM 40 MG/VIAL IV SCH (08:29)
[2020-03-08] MEDS: DEXAMETHASONE 10 MG/ML VIAL IV SCH (08:29)
[2020-03-08] MEDS: THIAMINE HCL 100MG TABLET PO SCH (08:30)
[2020-03-08] MEDS: MULTIVITAMINS,THER W-MINERALS TABLET PO SCH (08:30)
[2020-03-08] MEDS: FOLIC ACID 1MG TABLET PO SCH (08:30)
[2020-03-08 08:56] LABS: NUCLEATED RED BLOOD CELLS 1 /100 WBC; PLATELET ESTIMATE NORMAL
[2020-03-08] MEDS: ENOXAPARIN 60MG/0.6ML SYR SUBCUT SCH (10:02)
[2020-03-08] MEDS: ACETAMINOPHEN 650MG/20.3ML UDC GT PRN ×2 (10:46→18:55)
[2020-03-08 11:28] LABS: TOTAL IRON BINDING CAPACITY 280 ug/dL (250-450)
[2020-03-08 12:20] LABS: BG BASE EXCESS -6.6 mmol/L (-2.0-2.0); BG CARBOXYHEMOGLOBIN 0.2 % (0.5-1.5); BG DEOXYHEMOGLOBIN 3.9 % (0.0-5.0); BG FRACTION INSPIRED OXYGEN 40; BG HCO3 ACT 17.6 mmol/L (22.0-26.0); BG METHEMOGLOBIN 0.1 % (0.0-1.5); BG OXYGEN SATURATION 96.1 % (92.0-98.5); BG OXYHEMOGLOBIN 95.8 % (94.0-97.0); BG PCO2 30.7 mmHg (35.0-45.0); BG PH 7.376 (7.350-7.450); BG PO2 91.6 mmHg (75.0-100.0); BG PRESSURE SUPPORT 8; BG SAMPLE SITE RIGHT RADIAL; BG TOTAL HEMOGLOBIN 10.2 g/dL (12.0-18.0); BG VENT MODE VENT - CPAP
[2020-03-08] MEDS: CEFEPIME 1,000 MG in DEXTROSE 5% WATER 50 ML IV SCH (14:53)
[2020-03-08] MEDS: LORAZEPAM 2MG/ML CPJ IV PRN (22:03)
[2020-03-09] VITALS (55 sets, daily range): BP systolic 85–178; BP diastolic 46–122
[2020-03-09] MEDS: IPRATROPIUM BROMIDE (0.02%) 0.5MG/2.5ML NEB HHN SCH ×6 (00:32→21:25)
[2020-03-09] MEDS: ACETYLCYSTEINE 100MG/ML 10% VIAL 4ML INH SCH ×3 (00:32→18:00)
[2020-03-09] MEDS: INSULIN LISPRO 100 UNITS/ML SUBCUT SCH ×5 (00:39→21:00)
[2020-03-09 01:21] LABS: T4 FREE 0.91 ng/dL (0.76-1.46)
[2020-03-09 01:50] LABS: VITAMIN B12 SERUM >2000 pg/mL pg/mL (211-911)
[2020-03-09] MEDS ORDERED: ALTEPLASE 2MG/VIAL ITC NR ×2 (03:00)
[2020-03-09] MEDS: DILTIAZEM HCL 125 MG in DEXT 5% WATER 100 ML IV PRN (03:53)
[2020-03-09 05:48] LABS: HEMATOCRIT. 27.7 % (36.0-48.0); MEAN CORPUSCULAR HEMOGLOBIN 28.8 pg (28.0-32.0); MEAN CORPUSCULAR VOLUME 88.2 fL (81.0-99.0); PLATELET 260 x1000/uL (130-400); RED BLOOD CELL COUNT 3.14 mill/uL (4.2-5.4); RED CELL DISTRIBUTION WIDTH 17.8 % (11.6-14.6)
[2020-03-09] MEDS: METRONIDAZOLE 500MG TABLET PO SCH ×3 (06:00→22:00)
[2020-03-09] MEDS: BLOOD SUGAR DIAGNOSTIC STRIP TEST SCH ×4 (06:00→17:11)
[2020-03-09] MEDS: ENOXAPARIN 60MG/0.6ML SYR SUBCUT SCH (09:10)
[2020-03-09] MEDS: THIAMINE HCL 100MG TABLET PO SCH (09:10)
[2020-03-09] MEDS: OLANZAPINE 5MG TABLET PO SCH (09:10)
[2020-03-09] MEDS: MULTIVITAMINS,THER W-MINERALS TABLET PO SCH (09:10)
[2020-03-09] MEDS: FOLIC ACID 1MG TABLET PO SCH (09:10)
[2020-03-09] MEDS: PANTOPRAZOLE SODIUM 40 MG/VIAL IV SCH (09:10)
[2020-03-09 09:35] LABS: BG BASE EXCESS -4.5 mmol/L (-2.0-2.0); BG CARBOXYHEMOGLOBIN 0.6 % (0.5-1.5); BG FRACTION INSPIRED OXYGEN 35; BG HCO3 ACT 19.9 mmol/L (22.0-26.0); BG METHEMOGLOBIN 0.1 % (0.0-1.5); BG OXYHEMOGLOBIN 96.3 % (94.0-97.0); BG PCO2 34.1 mmHg (35.0-45.0); BG PH 7.385 (7.350-7.450); BG PO2 98.9 mmHg (75.0-100.0); BG SAMPLE SITE RIGHT RADIAL; BG TOTAL HEMOGLOBIN 9.8 g/dL (12.0-18.0); BG VENT MODE MASK - AEROSOL
[2020-03-09] MEDS: LORAZEPAM 2MG/ML CPJ IV PRN ×2 (10:49→20:43)
[2020-03-09] MEDS: CLONIDINE 0.1MG TABLET PO SCH ×2 (13:19→22:00)
[2020-03-09] MEDS: DILTIAZEM HCL 30MG TABLET PO SCH ×2 (13:19→20:39)
[2020-03-09] MEDS: CEFEPIME 1,000 MG in DEXTROSE 5% WATER 50 ML IV SCH (14:58)
[2020-03-09] MEDS ORDERED: INSULIN GLARGINE UD 100 UNITS/ML SYR SUBCUT NR (15:30)
[2020-03-09 20:59] LABS: PLATELET ESTIMATE NORMAL
[2020-03-09] MEDS: INSULIN GLARGINE UD 100 UNITS/ML SYR SUBCUT SCH (21:01)
[2020-03-10] VITALS (15 sets, daily range): BP systolic 107–169; BP diastolic 46–85
[2020-03-10] MEDS ORDERED: DILTIAZEM HCL 5MG/ML 5ML VIAL IV NR (02:00)
[2020-03-10] MEDS ORDERED: DILTIAZEM HCL 125 MG in DEXTROSE 5% WATER 125 ML IV SCH (03:00)
[2020-03-10] MEDS: IPRATROPIUM BROMIDE (0.02%) 0.5MG/2.5ML NEB HHN SCH ×6 (04:33→21:13)
[2020-03-10] MEDS: METRONIDAZOLE 500MG TABLET PO SCH ×2 (04:58→15:35)
[2020-03-10 06:07] LABS: HEMATOCRIT. 27.4 % (36.0-48.0); HEMOGLOBIN. 9.1 g/dL (12.0-16.0); MEAN CORPUSCULAR HEMOGLOBIN 29.1 pg (28.0-32.0); MEAN CORPUSCULAR VOLUME 87.5 fL (81.0-99.0); MEAN PLATELET VOLUME 8.6 fl (7.4-10.4); PLATELET 258 x1000/uL (130-400); RED BLOOD CELL COUNT 3.13 mill/uL (4.2-5.4); RED CELL DISTRIBUTION WIDTH 17.8 % (11.6-14.6)
[2020-03-10] MEDS: CLONIDINE 0.1MG TABLET PO SCH ×3 (06:55→22:02)
[2020-03-10] MEDS: BLOOD SUGAR DIAGNOSTIC STRIP TEST SCH ×4 (07:00→23:42)
[2020-03-10] MEDS: MULTIVITAMINS,THER W-MINERALS TABLET PO SCH (08:50)
[2020-03-10] MEDS: THIAMINE HCL 100MG TABLET PO SCH (08:50)
[2020-03-10] MEDS: FOLIC ACID 1MG TABLET PO SCH (08:50)
[2020-03-10] MEDS: OLANZAPINE 5MG TABLET PO SCH (08:50)
[2020-03-10] MEDS: ENOXAPARIN 60MG/0.6ML SYR SUBCUT SCH (08:51)
[2020-03-10] MEDS: INSULIN LISPRO 100 UNITS/ML SUBCUT SCH ×4 (08:52→21:00)
[2020-03-10] MEDS: INSULIN GLARGINE UD 100 UNITS/ML SYR SUBCUT SCH ×2 (09:02→22:04)
[2020-03-10] MEDS ORDERED: DIGOXIN 500MCG/2ML AMP IV NR (09:30)
[2020-03-10] MEDS: ACETYLCYSTEINE 100MG/ML 10% VIAL 4ML INH SCH ×2 (09:42→16:03)
[2020-03-10] MEDS ORDERED: POTASSIUM CHLORIDE 20MEQ TABLET SR PO SCH (10:30)
[2020-03-10] MEDS: METOPROLOL TARTRATE 50MG TABLET PO SCH ×2 (12:19→22:02)
[2020-03-10] MEDS: ASPIRIN 81MG TABLET PO SCH (12:23)
[2020-03-10 12:27] LABS: CREATINE KINASE 1664 IU/L (26-192)
[2020-03-10 12:29] LABS: NUCLEATED RED BLOOD CELLS 1 /100 WBC; PLATELET ESTIMATE NORMAL
[2020-03-10] MEDS: DILTIAZEM HCL 125 MG in DEXT 5% WATER 100 ML IV SCH ×2 (13:49→19:27)
[2020-03-10 14:44] LABS: BG BASE EXCESS 0.6 mmol/L (-2.0-2.0); BG CARBOXYHEMOGLOBIN 0.3 % (0.5-1.5); BG METHEMOGLOBIN 0.1 % (0.0-1.5); BG OXYHEMOGLOBIN 93.6 % (94.0-97.0); BG PCO2 33.7 mmHg (35.0-45.0); BG PH 7.471 (7.350-7.450); BG PO2 73.4 mmHg (75.0-100.0); BG SAMPLE SITE RIGHT BRACHIAL; BG TOTAL HEMOGLOBIN 9.1 g/dL (12.0-18.0); BG VENT MODE NASAL CANNULA
[2020-03-10] MEDS: LORAZEPAM 2MG/ML CPJ IV PRN (22:39)
[2020-03-11] VITALS (18 sets, daily range): BP systolic 81–159; BP diastolic 39–83
[2020-03-11] MEDS: IPRATROPIUM BROMIDE (0.02%) 0.5MG/2.5ML NEB HHN SCH ×5 (00:29→21:27)
[2020-03-11] MEDS: LORAZEPAM 2MG/ML CPJ IV PRN (04:46)
[2020-03-11] MEDS: DILTIAZEM HCL 125 MG in DEXT 5% WATER 100 ML IV SCH ×3 (04:47→23:06)
[2020-03-11] MEDS: BLOOD SUGAR DIAGNOSTIC STRIP TEST SCH ×4 (05:08→20:57)
[2020-03-11] MEDS: INSULIN LISPRO 100 UNITS/ML SUBCUT SCH ×4 (05:08→20:56)
[2020-03-11] MEDS: CLONIDINE 0.1MG TABLET PO SCH ×3 (05:08→21:52)
[2020-03-11 06:09] LABS: HEMATOCRIT. 26.6 % (36.0-48.0); HEMOGLOBIN. 8.7 g/dL (12.0-16.0); MEAN CORPUSCULAR HEMOGLOBIN 28.9 pg (28.0-32.0); MEAN CORPUSCULAR VOLUME 88.2 fL (81.0-99.0); MEAN PLATELET VOLUME 8.6 fl (7.4-10.4); PLATELET 234 x1000/uL (130-400); RED BLOOD CELL COUNT 3.01 mill/uL (4.2-5.4); RED CELL DISTRIBUTION WIDTH 17.2 % (11.6-14.6)
[2020-03-11] MEDS: METOPROLOL TARTRATE 50MG TABLET PO SCH (09:00)
[2020-03-11] MEDS: ENOXAPARIN 60MG/0.6ML SYR SUBCUT SCH (09:00)
[2020-03-11] MEDS: ASPIRIN 81MG TABLET PO SCH (09:00)
[2020-03-11] MEDS: THIAMINE HCL 100MG TABLET PO SCH (09:00)
[2020-03-11] MEDS: FOLIC ACID 1MG TABLET PO SCH (09:00)
[2020-03-11] MEDS ORDERED: FLUMAZENIL 0.1 MG/ML 5ML VIAL IV NR (10:00)
[2020-03-11] MEDS: INSULIN GLARGINE UD 100 UNITS/ML SYR SUBCUT SCH ×2 (10:00→20:57)
[2020-03-11 10:39] LABS: PLATELET ESTIMATE NORMAL
[2020-03-11] MEDS ORDERED: SODIUM CHLORIDE 0.9% 250 ML IV NR (10:47)
[2020-03-11 11:09] LABS: BG BASE EXCESS 0.2 mmol/L (-2.0-2.0); BG CARBOXYHEMOGLOBIN 0.6 % (0.5-1.5); BG FRACTION INSPIRED OXYGEN 28; BG HCO3 ACT 24.9 mmol/L (22.0-26.0); BG METHEMOGLOBIN 0.3 % (0.0-1.5); BG OXYGEN SATURATION 90.9 % (92.0-98.5); BG OXYHEMOGLOBIN 90.1 % (94.0-97.0); BG PCO2 40.3 mmHg (35.0-45.0); BG PH 7.408 (7.350-7.450); BG PO2 63.4 mmHg (75.0-100.0); BG SAMPLE SITE RIGHT BRACHIAL; BG TOTAL HEMOGLOBIN 9.1 g/dL (12.0-18.0); BG VENT MODE NASAL CANNULA
[2020-03-12] VITALS (22 sets, daily range): BP systolic 85–158; BP diastolic 48–125
[2020-03-12] MEDS: IPRATROPIUM BROMIDE (0.02%) 0.5MG/2.5ML NEB HHN SCH ×4 (01:10→20:11)
[2020-03-12] MEDS: CLONIDINE 0.1MG TABLET PO SCH ×3 (06:00→21:35)
[2020-03-12] MEDS: BLOOD SUGAR DIAGNOSTIC STRIP TEST SCH ×4 (07:30→21:23)
[2020-03-12 10:04] LABS: HEMATOCRIT. 25.4 % (36.0-48.0); HEMOGLOBIN. 8.3 g/dL (12.0-16.0); MEAN CORPUSCULAR HEMOGLOBIN 29.2 pg (28.0-32.0); MEAN CORPUSCULAR VOLUME 89.9 fL (81.0-99.0); MEAN PLATELET VOLUME 8.9 fl (7.4-10.4); PLATELET 207 x1000/uL (130-400); RED BLOOD CELL COUNT 2.83 mill/uL (4.2-5.4); RED CELL DISTRIBUTION WIDTH 17.2 % (11.6-14.6)
[2020-03-12] MEDS: THIAMINE HCL 100MG TABLET PO SCH (10:39)
[2020-03-12] MEDS: ENOXAPARIN 60MG/0.6ML SYR SUBCUT SCH (10:40)
[2020-03-12] MEDS: ASPIRIN 81MG TABLET PO SCH (10:40)
[2020-03-12] MEDS: FOLIC ACID 1MG TABLET PO SCH (10:40)
[2020-03-12] MEDS: INSULIN GLARGINE UD 100 UNITS/ML SYR SUBCUT SCH ×2 (10:41→21:23)
[2020-03-12] MEDS: INSULIN LISPRO 100 UNITS/ML SUBCUT SCH ×4 (11:27→21:23)
[2020-03-12] MEDS: OLANZAPINE 5MG TABLET PO SCH (11:39)
[2020-03-12 13:58] LABS: PLATELET ESTIMATE NORMAL
[2020-03-12] MEDS ORDERED: PIPERACILLIN/TAZOBACTAM 3.375 G/VIAL IV SCH (14:00)
[2020-03-12] MEDS: DILTIAZEM HCL 30MG TABLET PO SCH ×2 (14:38→21:35)
[2020-03-12] MEDS: PIPERACILLIN/TAZOBACTAM 2.25 G in DEXTROSE 5% WATER 50 ML IV SCH ×2 (14:39→18:29)
[2020-03-12] MEDS: DILTIAZEM HCL 125 MG in DEXT 5% WATER 100 ML IV SCH ×2 (14:40→21:34)
[2020-03-12] MEDS: ACETAMINOPHEN 650MG/20.3ML UDC GT PRN (15:54)
[2020-03-12] MEDS: GABAPENTIN 100MG CAPSULE PO SCH (21:21)
[2020-03-12] MEDS ORDERED: GABAPENTIN 300MG CAPSULE PO SCH (22:00)
[2020-03-13] VITALS (12 sets, daily range): BP systolic 106–129; BP diastolic 42–65
[2020-03-13] MEDS: IPRATROPIUM BROMIDE (0.02%) 0.5MG/2.5ML NEB HHN SCH ×6 (00:13→20:57)
[2020-03-13] MEDS: PIPERACILLIN/TAZOBACTAM 2.25 G in DEXTROSE 5% WATER 50 ML IV SCH ×5 (00:53→23:27)
[2020-03-13] MEDS: ACETAMINOPHEN 650MG/20.3ML UDC GT PRN ×2 (02:23→08:21)
[2020-03-13] MEDS: CLONIDINE 0.1MG TABLET PO SCH ×3 (05:28→21:23)
[2020-03-13] MEDS: GABAPENTIN 100MG CAPSULE PO SCH ×3 (05:29→21:23)
[2020-03-13] MEDS: DILTIAZEM HCL 30MG TABLET PO SCH ×2 (05:29→13:13)
[2020-03-13] MEDS: DILTIAZEM HCL 125 MG in DEXT 5% WATER 100 ML IV SCH ×2 (06:09→13:11)
[2020-03-13 07:24] LABS: BASOPHILS % 0.3 % (0.0-2.0); EOSINOPHILS % 2.2 % (0.0-5.0); HEMATOCRIT. 21.6 % (36.0-48.0); HEMOGLOBIN. 7.1 g/dL (12.0-16.0); LYMPHOCYTES % 10.7 % (20.0-50.0); MEAN CORPUSCULAR HEMOGLOBIN 29.9 pg (28.0-32.0); MEAN CORPUSCULAR VOLUME 90.6 fL (81.0-99.0); MEAN PLATELET VOLUME 9.2 fl (7.4-10.4); NEUTROPHILS % 79.8 % (40.0-76.0); PLATELET 200 x1000/uL (130-400); RED BLOOD CELL COUNT 2.38 mill/uL (4.2-5.4); RED CELL DISTRIBUTION WIDTH 17.4 % (11.6-14.6)
[2020-03-13] MEDS: ASPIRIN 81MG TABLET PO SCH (08:21)
[2020-03-13] MEDS: BLOOD SUGAR DIAGNOSTIC STRIP TEST SCH ×4 (08:21→21:23)
[2020-03-13] MEDS: THIAMINE HCL 100MG TABLET PO SCH (08:21)
[2020-03-13] MEDS: FOLIC ACID 1MG TABLET PO SCH (08:22)
[2020-03-13] MEDS: ENOXAPARIN 60MG/0.6ML SYR SUBCUT SCH (08:22)
[2020-03-13] MEDS: OLANZAPINE 5MG TABLET PO SCH (08:22)
[2020-03-13] MEDS: INSULIN LISPRO 100 UNITS/ML SUBCUT SCH ×4 (08:23→21:00)
[2020-03-13] MEDS: HYDROCODONE/ACETAMINOPHEN 5/325MG TABLET PO PRN ×3 (10:57→23:27)
[2020-03-13] MEDS: INSULIN GLARGINE UD 100 UNITS/ML SYR SUBCUT SCH ×2 (13:12→21:24)
[2020-03-13] MEDS ORDERED: LACTULOSE 20G/30ML UDC PO SCH (13:30)
[2020-03-13] MEDS ORDERED: DILTIAZEM HCL 30MG TABLET PO SCH (14:00)
[2020-03-13] MEDS ORDERED: DILTIAZEM HCL 30MG TABLET PO NR (14:00)
[2020-03-13] MEDS ORDERED: DILTIAZEM HCL 5MG/ML 5ML VIAL IV PRN (15:00)
[2020-03-13] MEDS ORDERED: DILTIAZEM HCL 125 MG in DEXT 5% WATER 100 ML IV SCH (15:30)
[2020-03-13] MEDS ORDERED: INSULIN GLARGINE UD 100 UNITS/ML SYR SUBCUT SCH (22:00)
[2020-03-14] VITALS (11 sets, daily range): BP systolic 105–145; BP diastolic 52–75
[2020-03-14] MEDS: IPRATROPIUM BROMIDE (0.02%) 0.5MG/2.5ML NEB HHN SCH ×5 (00:53→16:51)
[2020-03-14] MEDS: CLONIDINE 0.1MG TABLET PO SCH ×2 (05:36→14:35)
[2020-03-14] MEDS: GABAPENTIN 100MG CAPSULE PO SCH (05:36)
[2020-03-14] MEDS: PIPERACILLIN/TAZOBACTAM 2.25 G in DEXTROSE 5% WATER 50 ML IV SCH ×2 (05:38→12:24)
[2020-03-14] MEDS: HYDROCODONE/ACETAMINOPHEN 5/325MG TABLET PO PRN ×2 (05:38→12:25)
[2020-03-14] MEDS: DILTIAZEM HCL 125 MG in DEXT 5% WATER 100 ML IV SCH ×2 (06:00→08:36)
[2020-03-14] MEDS: BLOOD SUGAR DIAGNOSTIC STRIP TEST SCH ×2 (07:30→12:30)
[2020-03-14 07:57] LABS: BASOPHILS % 0.6 % (0.0-2.0); EOSINOPHILS % 3.8 % (0.0-5.0); HEMATOCRIT. 25.7 % (36.0-48.0); HEMOGLOBIN. 7.9 g/dL (12.0-16.0); LYMPHOCYTES % 11.6 % (20.0-50.0); MEAN CORPUSCULAR HEMOGLOBIN 28.8 pg (28.0-32.0); MEAN CORPUSCULAR VOLUME 93.2 fL (81.0-99.0); MEAN PLATELET VOLUME 9.4 fl (7.4-10.4); MONOCYTES % 7.8 % (2.0-8.0); NEUTROPHILS % 76.2 % (40.0-76.0); PLATELET 288 x1000/uL (130-400); RED BLOOD CELL COUNT 2.75 mill/uL (4.2-5.4); RED CELL DISTRIBUTION WIDTH 17.3 % (11.6-14.6)
[2020-03-14] MEDS: FOLIC ACID 1MG TABLET PO SCH (08:25)
[2020-03-14] MEDS: THIAMINE HCL 100MG TABLET PO SCH (08:25)
[2020-03-14] MEDS: OLANZAPINE 5MG TABLET PO SCH (08:25)
[2020-03-14] MEDS: HYDROMORPHONE HCL/PF 2MG/ML CPJ IV PRN ×2 (08:31→14:09)
[2020-03-14] MEDS: INSULIN LISPRO 100 UNITS/ML SUBCUT SCH ×2 (08:32→12:40)
[2020-03-14] MEDS ORDERED: DILTIAZEM HCL 60MG TABLET PO SCH (09:00)
[2020-03-14] MEDS: INSULIN GLARGINE UD 100 UNITS/ML SYR SUBCUT SCH (09:57)
[2020-03-14] MEDS ORDERED: DILTIAZEM HCL 90MG TABLET PO SCH (14:00)
[2020-03-14] MEDS ORDERED: GABAPENTIN 300MG CAPSULE PO SCH (14:00)
[2020-03-14 14:58] LABS: HEPATITIS B SURFACE AB 53.7 mIU/mL
[2020-03-14 15:09] LABS: HEPATITIS B SURFACE ANTIGEN NEGATIVE
[2020-03-14 15:38] LABS: HEPATITIS A AB IGM NEGATIVE (NEGATIVE)
[2020-03-14] MEDS ORDERED: PIPERACILLIN/TAZOBACTAM 2.25 G in DEXTROSE 5% WATER 50 ML IV SCH (22:00)
== END 2020-03-14 18:30 | disposition short-term general hospital (02) | DRG 720 ==
LOC: ER 10:45 → MICUNO 11:50 → EDBEDREQTM 11:55 → EDBEDREQ 11:55 → ENRESERV 13:06 → MICUSO 03-06 07:59 → MICUNO 03-08 19:45 → 5EST 03-09 14:30
PROVIDERS: ADMIT Internal Medicine; ATTEND Internal Medicine
PROC: 5A1945Z Respiratory Ventilation, 24-96 Consecutive Hours (ICD-10-PCS; principal; 2020-03-05)
PROC: 0BH17EZ Insertion of Endotracheal Airway into Trachea, Via Natural or Artificial Opening (ICD-10-PCS; 2020-03-05)
PROC: 02HV33Z Insertion of Infusion Device into Superior Vena Cava, Percutaneous Approach (ICD-10-PCS; 2020-03-06)
PROC: B548ZZA Ultrasonography of Superior Vena Cava, Guidance (ICD-10-PCS; 2020-03-06)
PROC: 5A1D70Z Performance of Urinary Filtration, Intermittent, Less than 6 Hours Per Day (ICD-10-PCS; 2020-03-09)
PROC: 5A1D70Z Performance of Urinary Filtration, Intermittent, Less than 6 Hours Per Day (ICD-10-PCS; 2020-03-12)
PROC: 5A1D70Z Performance of Urinary Filtration, Intermittent, Less than 6 Hours Per Day (ICD-10-PCS; 2020-03-14)
DX: A41.9 Sepsis, unspecified organism (principal); D64.9 Anemia, unspecified; G92 Toxic encephalopathy; E87.6 Hypokalemia; E83.39 Other disorders of phosphorus metabolism; H35.60 Retinal hemorrhage, unspecified eye; I46.9 Cardiac arrest, cause unspecified; I31.3 Pericardial effusion (noninflammatory); J69.0 Pneumonitis due to inhalation of food and vomit; J96.02 Acute respiratory failure with hypercapnia; N18.6 End stage renal disease; M62.82 Rhabdomyolysis; R65.21 Severe sepsis with septic shock; D68.59 Other primary thrombophilia; E11.22 Type 2 diabetes mellitus with diabetic chronic kidney disease; E11.319 Type 2 diabetes mellitus with unspecified diabetic retinopathy without macular edema; E11.65 Type 2 diabetes mellitus with hyperglycemia; E78.5 Hyperlipidemia, unspecified; E87.4 Mixed disorder of acid-base balance; E87.5 Hyperkalemia; F14.10 Cocaine abuse, uncomplicated; F41.0 Panic disorder [episodic paroxysmal anxiety]; E11.42 Type 2 diabetes mellitus with diabetic polyneuropathy; I13.2 Hypertensive heart and chronic kidney disease with heart failure and with stage 5 chronic kidney disease, or end stage renal disease; I48.0 Paroxysmal atrial fibrillation; I48.92 Unspecified atrial flutter; I50.23 Acute on chronic systolic (congestive) heart failure; J68.0 Bronchitis and pneumonitis due to chemicals, gases, fumes and vapors; J84.9 Interstitial pulmonary disease, unspecified; F41.9 Anxiety disorder, unspecified; J15.212 Pneumonia due to Methicillin resistant Staphylococcus aureus; K59.00 Constipation, unspecified; N17.9 Acute kidney failure, unspecified; R74.0 Nonspecific elevation of levels of transaminase and lactic acid dehydrogenase [LDH]; Z20.828 Contact with and (suspected) exposure to other viral communicable diseases; Z78.1 Physical restraint status; Z86.73 Personal history of transient ischemic attack (TIA), and cerebral infarction without residual deficits; Z88.5 Allergy status to narcotic agent; Z79.1 Long term (current) use of non-steroidal anti-inflammatories (NSAID); Z79.899 Other long term (current) drug therapy; Z79.4 Long term (current) use of insulin; Z99.2 Dependence on renal dialysis
CPT/HCPCS: 31500; 36415; 36600; 70551; 71045; 71250; 76937; 80048; 80053; 80061; 80076; 80202; 80305; 80320; 81003; 82040; 82140; 82270; 82375; 82550; 82607; 82728; 82746; 82805; 82962; 83036; 83540; 83550; 83605; 83615; 83735; 84100; 84134; 84145; 84439; 84443; 84478; 84481; 84484; 85025; 85379; 85384; 86140; 86705; 86706; 86709; 86803; 86850; 86900; 87340; 87635; 93005; 93306; 93970; 94002; 94003; 94640; 97110; 97162; 97530; 99291; C1725; C1769; C9113; J0692; J1100; J1160; J1170; J1650; J1815; J1956; J2060; J2250; J2370; J2405; J2543; J2704; J2997; J3370; J3490; J7030; J7060; J7608; G0480